=== PATIENT | female | born 1970 | race Caucasian/White ===

== ENCOUNTER 2018-02-24 05:54 | Emergency (ER) | payer OTHER ==
[2018-02-24] MEDS ORDERED: DIPHENHYDRAMINE 50 MG/ML VIAL ONE (06:25)
[2018-02-24] MEDS ORDERED: PROMETHAZINE 25 MG/ML VIAL ONE ×2 (06:25→07:35)
[2018-02-24] MEDS ORDERED: KETOROLAC 30 MG/ML INJ ONE (06:25)
[2018-02-24] MEDS ORDERED: NA CHLORIDE 0.9% 1,000 ML ONE ×3 (06:25→09:04)
[2018-02-24 07:01] LABS: Glucose Level 98 mg/dL (65-120)
[2018-02-24 07:02] LABS: Absolute Lymphocytes (CBC) 1.1 K/uL (0.7-4.9); Absolute Monocytes 0.8 K/uL (0.1-1.3); Absolute Neutrophil 11.3 K/uL (1.8-8.0); Basophils % 0.3 % (0-1.3); Eosinophils % 0.1 % (0-4.4); Hematocrit 39.3 % (36.0-45.0); MCH 24.8 pg (27.0-35.0); MCV 79.1 fL (80-100); MPV 9.9 fL (7.6-11.3); Monocytes % 5.9 % (3.3-12.3); RBC Red Blood Cell Count 4.97 M/uL (3.86-4.86)
[2018-02-24 07:07] LABS: ALT/SGPT 55 IU/L (10-60); AST/SGOT 43 IU/L (10-42); Albumin 3.7 g/dL (3.2-5.5); Alkaline Phosphatase 104 IU/L (42-121); BUN Blood Urea Nitrogen 16 mg/dL (6-20); Bilirubin Direct 0.3 mg/dL (0-0.2); Bilirubin Total 1.4 mg/dL (0.3-1.2); Protein, Total 7.2 g/dL (6.0-8.3)
[2018-02-24 07:08] LABS: Bicarbonate 22 mEq/L (21-31); Sodium Level 136 mEq/L (135-145)
[2018-02-24] MEDS ORDERED: PANTOPRAZOLE 40 MG INJ ONE (07:35)
[2018-02-24] MEDS ORDERED: ALBUTEROL 2.5 MG/3 ML NEB SOL ONE (07:35)
[2018-02-24 08:58] LABS: Blood Morphology Comment NOT SEEN (NOT SEEN); Platelet Estimate ADEQ; Urine White Blood Cell Casts OK
[2018-02-24] MEDS ORDERED: POTASSIUM CL SA 10 MEQ TAB PO ONE (09:03)
[2018-02-24] MEDS ORDERED: KCL 20 MEQ/100 mL IVPB 20 MEQ/100 ML BAG IV ONE (09:04)
[2018-02-24] MEDS ORDERED: ONDANSETRON 4 MG (ODT) TAB ONE (09:04)
--- NOTE | 2018-02-24 09:48 | RAD REPORT ---
EXAM DESCRIPTION: CT - Head Brain Wo Cont - 02/24/2018 9:23 am CLINICAL HISTORY: Migraine headache, photophobia COMPARISON: CT head March 2015 TECHNIQUE: Axial 5 mm thick images of the head were obtained without IV contrast. All CT scans are performed using dose optimization technique as appropriate and may include automated exposure control or mA/KV adjustment according to patient size. FINDINGS: No intracranial hemorrhage, mass, edema or shift of mid-line structures. No acute infarcti on changes seen. No abnormal extra-axial fluid collections. Ventricles are normal. No acute intracran ial finding seen in the intracranial structures are similar to 2015. Mastoid air cells and visualized portions of the paranasal sinuses are clear. No acute bony findings. IMPRESSION: Negative non-contrast CT head examination. No significant change from comparison.
--- NOTE | 2018-02-24 10:40 | ER ---
Nurse's Notes [facility] Name: Sohan Looney Age: 47 yrs Sex: Female : 1970 Arrival Date: 02/24/2018 Time: 05:55 Bed 13 Private MD: Bucky Hunter Diagnosis: Headache;Hypokalemia;Urinary tract infection, site not specified Presentation: 02/24 06:03 Presenting complaint: Patient states: Migraine x2 days, states N/V, sensitive to light; lp1 Has been taking Maxalt at home with no relief. Transition of care: patient was not received from another setting of care. Onset of symptoms was February 22, 2018. Risk Assessment: Do you want to hurt yourself or someone else? Patient reports no desire to harm self or others. Initial Sepsis Screen: Does the patient meet any 2 criteria? No. Patient's initial sepsis screen is negative. Does the patient have a suspected source of infection? No. Patient's initial sepsis screen is negative. 06:03 Method Of Arrival: Wheelchair lp1 06:03 Acuity: MATTEO 3 lp1 06:06 Care prior to arrival: None. lp1 Triage Assessment: 06:40 GI: Reports nausea, vomiting. 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 - Social history:: Smoking status: Patient uses tobacco products, smokes one pack cigarettes per day. - Ebola Screening: : No symptoms or risks identified at this time. Screenin:40 Abuse screen: Denies threats or abuse. Denies injuries from another. Nutritional lp1 screening: No deficits noted. Tuberculosis screening: No symptoms or risk factors identified. Fall Risk None identified. Assessment: 06:15 General: Appears uncomfortable, Behavior is restless. Pain: Complains of pain in head lp1 Pain currently is 10 out of 10 on a pain scale. Quality of pain is described as pressure, Pain began 2-3 days ago. Noted to be grimacing, guarding, restless. Neuro: Level of Consciousness is awake, alert, obeys commands, Oriented to person, place, time, situation. Cardiovascular: Patient's skin is warm and dry. Respiratory: Respiratory effort is even, unlabored, Breath sounds are clear bilaterally. GI: Abdomen is flat, Pt is actively vomiting. : No signs and/or symptoms were reported regarding the genitourinary system. EENT: No signs and/or symptoms were reported regarding the EENT system. Derm: Skin is intact, Skin is dry, Skin is normal. Musculoskeletal: Circulation, motion, and sensation intact. 07:29 General: Appears in no apparent distress. uncomfortable, Behavior is calm, cooperative. em Pain: Complains of pain in head Pain currently is 6 out of 10 on a pain scale. Quality of pain is described as pressure, Pain began 2-3 days ago. Neuro: Level of Consciousness is awake, alert, obeys commands, Oriented to person, place, time, situation. Cardiovascular: Capillary refill < 3 seconds Patient's skin is warm and dry. Respiratory: Airway is patent Respiratory effort is even, unlabored, Respiratory pattern is regular, symmetrical, Breath sounds are clear bilaterally. GI: Abdomen is flat. : No signs and/or symptoms were reported regarding the genitourinary system. EENT: No signs and/or symptoms were reported regarding the EENT system. Derm: Skin is intact, Skin is pink, warm \T\ dry. 07:45 Reassessment: Patient appears in no apparent distress at this time. I agree with above iw assessment by Freddy Vora LVN. 08:39 Reassessment: Patient appears in no apparent distress at this time. Patient and/or em family updated on plan of care and expected duration. Pain level reassessed. Patient is alert, oriented x 3, equal unlabored respirations, skin warm/dry/pink. pt c/o pain, Elly, PROJECTION CAMERA OPERATOR notified. 09:43 Reassessment: Patient appears in no apparent distress at this time. Patient and/or em family updated on plan of care and expected duration. Pain level reassessed. Patient is alert, oriented x 3, equal unlabored respirations, skin warm/dry/pink. resting with towel over eyes, rates pain 6/10. 10:50 Reassessment: Patient appears in no apparent distress at this time. Patient and/or em family updated on plan of care and expected duration. Pain level reassessed. Patient is alert, oriented x 3, equal unlabored respirations, skin warm/dry/pink. Vital Signs: 06:06 BP 133 / 76; Pulse 100; Resp 18; Pulse Ox 98% on R/A; Weight 54.43 kg; Height 5 ft. 3 lp1 in. (160.02 cm); Pain 10/10; 07:30 BP 131 / 76; Pulse 90; Resp 15; Pulse Ox 99% on R/A; Pain 6/10; em 08:39 BP 114 / 73; Pulse 99; Resp 16; Pulse Ox 97% on R/A; em 09:50 BP 125 / 77; Pulse 99; Resp 15; Temp 98.1(O); Pulse Ox 100% on R/A; em 10:50 BP 130 / 78; Pulse 97; Resp 17; Pulse Ox 97% on R/A; Pain 6/10; em 06:06 Body Mass Index 21.26 (54.43 kg, 160.02 cm) lp1 [place]us Coma Score: 10:34 Eye Response: spontaneous(4). Verbal Response: oriented(5). Motor Response: obeys snw commands(6). Total: 15. ED Course: 05:55 Patient arrived in ED. ds1 06:03 Jeanine Monk, RN is Primary Nurse. lp1 06:05 Triage completed. lp1 06:06 Arm band placed on right wrist. lp1 06:16 El[facility] Becerril FNP-C [facility]. snw 06:16 Td Bray MD is Attending Physician. snw 06:20 Inserted saline lock: 20 gauge in right forearm, using aseptic technique. Blood lp1 collected. 06:39 Patient has correct armband on for positive identification. Pulse ox on. NIBP on. lp1 06:44 Bucky Hunter MD is Private Physician. ds1 09:24 CT Head Brain wo Cont In Process Unspecified. EDMS 09:30 No provider procedures requiring assistance completed. Inserted saline lock: 22 gauge em in left antecubital area, using aseptic technique. 10:39 Bucky Hunter MD is Referral Physician. snw 11:04 IV discontinued, intact, bleeding controlled, No redness/swelling at site. Pressure em dressing applied. Administered Medications: 06:36 Drug: NS 0.9% 1000 ml Route: IV; Rate: 1 bolus; Site: right forearm; lp1 07:27 Follow up: IV Status: Completed infusion; IV Intake: 1000ml em 06:36 Drug: Phenergan 12.5 mg Route: IVP; Site: right forearm; lp1 07:27 Follow up: Response: No adverse reaction; Nausea is decreased em 06:36 Drug: TORadol 30 mg Route: IVP; Site: right forearm; lp1 07:27 Follow up: Response: No adverse reaction; Pain is decreased em 06:36 Drug: Benadryl 12.5 mg Route: IVP; Site: right forearm; lp1 07:27 Follow up: Response: No adverse reaction; Pain is decreased em 07:26 Drug: NS 0.9% 1000 ml Route: IV; Rate: 1 bolus; Site: right forearm; em 11:07 Follow up: IV Status: Completed infusion; IV Intake: 1000ml em 07:30 Drug: Albuterol 2.5 mg Route: Inhalation; em 08:40 Follow up: Response: No adverse reaction em 07:30 Drug: Phenergan 12.5 mg Route: IVP; Site: right forearm; em 08:40 Follow up: Response: No adverse reaction em 07:35 Drug: ProTONIX 40 mg Route: IVP; Site: right forearm; iw 08:40 Follow up: Response: No adverse reaction em 09:38 Drug: Potassium Chloride 40 mEq Route: PO; em 09:47 Follow up: Response: No adverse reaction em 09:39 Drug: Zofran 4 mg Route: PO; em 09:48 Follow up: Response: No adverse reaction em 09:39 Drug: Potassium Chloride 20 mEq Route: IV; Rate: calculated rate; Site: left em antecubital; 11:01 Follow up: Response: No adverse reaction; IV Status: Completed infusion; IV Intake: em 100ml 10:55 Drug: Rocephin 1 grams Route: IV; Rate: calculated rate; Site: left antecubital; iw 11:03 Follow up: Response: No adverse reaction; IV Status: Completed infusion em Intake: 07:27 IV: 1000ml; Total: 1000ml. em 11:01 IV: 100ml; Total: 1100ml. em 11:07 IV: 1000ml; Total: 2100ml. em Outcome: 10:39 Discharge ordered by . snw 11:05 Discharged to home via wheelchair, with family. em 11:05 Condition: good 11:05 Discharge instructions given to patient, family, Instructed on discharge instructions, follow up and referral plans. no drinking with medication, medication usage, Demonstrated understanding of instructions, follow-up care, medications, Prescriptions given X 5 11:08 Patient left the ED. em Addendum: 02/28/2018 07:49 Addendum: Culture Results: Positive urine culture. No further action required. Bacteria s s sensitive to prescribed antibiotic. Signatures: Dispatcher [employer] EDElly Dow, HAND COKE DRAWER-C HAND COKE DRAWER-Csnw Freddy Vora, DIRECTOR OF MANAGED SERVICES DIRECTOR OF MANAGED SERVICES Mariela Newberry ds1 Mehnaz Hughes, RN FÉLIX iw Koki Horvath RN RN ss Jeanine Monk RN RN lp1
--- NOTE | 2018-02-24 10:40 | EDPHYS ---
Physician Documentation [facility] Name: Sohan Looney Age: 47 yrs Sex: Female : 1970 Arrival Date: 02/24/2018 Time: 05:55 Bed 13 Private MD: Bucky Hunter ED Physician Td Bray HPI: 02/24 08:36 This 47 yrs old Female presents to ER via Wheelchair with complaints of snw Migraine, Nausea/Vomiting. 08:36 The patient complains of pain to the top of head and forehead. The patient describes snw the headache as constant. Onset: The symptoms/episode began/occurred 2 day(s) ago, and became worse and became persistent. Associated signs and symptoms: Pertinent positives: malaise, nausea, Photophobia vomiting. Severity of symptoms: At its worst the pain was moderate, severe. Headache History: The patient has had previous headaches and this one is similar to previous episodes. The symptoms are alleviated by nothing. the symptoms are aggravated by lights, movement. The patient has experienced similar episodes in the past. It is unknown whether or not the patient has recently seen a physician. 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 - Social history:: Smoking status: Patient uses tobacco products, smokes one pack cigarettes per day. - Ebola Screening: : No symptoms or risks identified at this time. ROS: 08:34 Constitutional: Negative for fever, chills, and weight loss, Eyes: Negative for injury, snw pain, redness, and discharge, ENT: Negative for injury, pain, and discharge, Neck: Negative for injury, pain, and swelling, Cardiovascular: Negative for chest pain, palpitations, and edema, Respiratory: Negative for shortness of breath, cough, wheezing, and pleuritic chest pain. 08:34 Back: Negative for injury and pain, : Negative for injury, bleeding, discharge, and swelling, MS/Extremity: Negative for injury and deformity, Skin: Negative for injury, rash, and discoloration. 08:34 Abdomen/GI: Positive for nausea and vomiting. 08:34 Neuro: Positive for headache. Exam: 08:34 Head/Face: Normocephalic, atraumatic. Eyes: Pupils equal round and reactive to light, snw extra-ocular motions intact. Lids and lashes normal. Conjunctiva and sclera are non-icteric and not injected. Cornea within normal limits. Periorbital areas with no swelling, redness, or edema. ENT: Nares patent. No nasal discharge, no septal abnormalities noted. Tympanic membranes are normal and external auditory canals are clear. Oropharynx with no redness, swelling, or masses, exudates, or evidence of obstruction, uvula midline. Mucous membranes moist. Neck: Trachea midline, no thyromegaly or masses palpated, and no cervical lymphadenopathy. Supple, full range of motion without nuchal rigidity, or vertebral point tenderness. No Meningismus. Chest/axilla: Normal chest wall appearance and motion. Nontender with no deformity. No lesions are appreciated. Cardiovascular: Regular rate and rhythm with a normal S1 and S2. No gallops, murmurs, or rubs. Normal PMI, no JVD. No pulse deficits. Respiratory: Lungs have equal breath sounds bilaterally, clear to auscultation and percussion. No rales, rhonchi or wheezes noted. No increased work of breathing, no retractions or nasal flaring. Abdomen/GI: Soft, non-tender, with normal bowel sounds. No distension or tympany. No guarding or rebound. No evidence of tenderness throughout. Back: No spinal tenderness. No costovertebral tenderness. Full range of motion. Skin: Warm, dry with normal turgor. Normal color with no rashes, no lesions, and no evidence of cellulitis. MS/ Extremity: Pulses equal, no cyanosis. Neurovascular intact. Full, normal range of motion. Neuro: Awake and alert, GCS 15, oriented to person, place, time, and situation. Cranial nerves II-XII grossly intact. Motor strength 5/5 in all extremities. Sensory grossly intact. Cerebellar exam normal. Normal gait. Psych: Awake, alert, with orientation to person, place and time. Behavior, mood, and affect are within normal limits. 08:34 Constitutional: The patient appears awake, listless, uncomfortable. Vital Signs: 06:06 BP 133 / 76; Pulse 100; Resp 18; Pulse Ox 98% on R/A; Weight 54.43 kg; Height 5 ft. 3 lp1 in. (160.02 cm); Pain 10/10; 07:30 BP 131 / 76; Pulse 90; Resp 15; Pulse Ox 99% on R/A; Pain 6/10; em 08:39 BP 114 / 73; Pulse 99; Resp 16; Pulse Ox 97% on R/A; em 09:50 BP 125 / 77; Pulse 99; Resp 15; Temp 98.1(O); Pulse Ox 100% on R/A; em 10:50 BP 130 / 78; Pulse 97; Resp 17; Pulse Ox 97% on R/A; Pain 6/10; em 06:06 Body Mass Index 21.26 (54.43 kg, 160.02 cm) lp1 [place] Coma Score: 10:34 Eye Response: spontaneous(4). Verbal Response: oriented(5). Motor Response: obeys snw commands(6). Total: 15. MDM: 06:18 Patient medically screened. snw 10:34 Data reviewed: vital signs, nurses notes. Data interpreted: Pulse oximetry: on room air snw is 100 %. Interpretation: normal. Counseling: I had a detailed discussion with the patient and/or guardian regarding: the historical points, exam findings, and any diagnostic results supporting the discharge/admit diagnosis, lab results, radiology results, the need for outpatient follow up, to return to the emergency department if symptoms worsen or persist or if there are any questions or concerns that arise at home. Special discussion: Based on the history and exam findings, there is no indication for further emergent testing or inpatient evaluation. I discussed with the patient/guardian the need to see the neurologist for further evaluation of the symptoms. I discussed with the patient/guardian the need to see the primary care provider for further evaluation of the symptoms. 02/24 06:20 Order name: Basic Metabolic Panel; Complete Time: 07:14 snw 02/24 06:20 Order name: CBC with Diff; Complete Time: 08:59 snw 02/24 06:20 Order name: Hepatic Function; Complete Time: 07:14 snw 05/30 06:20 Order name: Urine Microscopic Only; Complete Time: 10:51 snw 02/24 07:13 Order name: CBC Smear Scan; Complete Time: 08:59 EDMS 02/24 10:28 Order name: Urine Dipstick--Ancillary (enter results); Complete Time: 10:45 ag 02/24 10:28 Order name: Urine --Ancillary (enter results); Complete Time: 10:45 ag 02/24 10:51 Order name: Urine Culture EDMS 02/24 06:20 Order name: IV Saline Lock; Complete Time: 06:36 snw 02/24 06:20 Order name: Labs collected and sent; Complete Time: 06:37 snw 02/24 08:49 Order name: CT Head Brain wo Cont; Complete Time: 09:52 snw 02/24 06:20 Order name: Urine Dipstick-Ancillary (obtain specimen); Complete Time: 10:13 snw Administered Medications: 06:36 Drug: NS 0.9% 1000 ml Route: IV; Rate: 1 bolus; Site: right forearm; lp1 07:27 Follow up: IV Status: Completed infusion; IV Intake: 1000ml em 06:36 Drug: Phenergan 12.5 mg Route: IVP; Site: right forearm; lp1 07:27 Follow up: Response: No adverse reaction; Nausea is decreased em 06:36 Drug: TORadol 30 mg Route: IVP; Site: right forearm; lp1 07:27 Follow up: Response: No adverse reaction; Pain is decreased em 06:36 Drug: Benadryl 12.5 mg Route: IVP; Site: right forearm; lp1 07:27 Follow up: Response: No adverse reaction; Pain is decreased em 07:26 Drug: NS 0.9% 1000 ml Route: IV; Rate: 1 bolus; Site: right forearm; em 11:07 Follow up: IV Status: Completed infusion; IV Intake: 1000ml em 07:30 Drug: Albuterol 2.5 mg Route: Inhalation; em 08:40 Follow up: Response: No adverse reaction em 07:30 Drug: Phenergan 12.5 mg Route: IVP; Site: right forearm; em 08:40 Follow up: Response: No adverse reaction em 07:35 Drug: ProTONIX 40 mg Route: IVP; Site: right forearm; iw 08:40 Follow up: Response: No adverse reaction em 09:38 Drug: Potassium Chloride 40 mEq Route: PO; em 09:47 Follow up: Response: No adverse reaction em 09:39 Drug: Zofran 4 mg Route: PO; em 09:48 Follow up: Response: No adverse reaction em 09:39 Drug: Potassium Chloride 20 mEq Route: IV; Rate: calculated rate; Site: left em antecubital; 11:01 Follow up: Response: No adverse reaction; IV Status: Completed infusion; IV Intake: em 100ml 10:55 Drug: Rocephin 1 grams Route: IV; Rate: calculated rate; Site: left antecubital; iw 11:03 Follow up: Response: No adverse reaction; IV Status: Completed infusion em Disposition: 20:33 Co-signature as Attending Physician, Td Bray MD. rn Disposition: 02/24/18 10:39 Discharged to Home. Impression: Headache, Hypokalemia, Urinary tract infection, site not specified. - Condition is Stable. - Discharge Instructions: Back Pain, Adult, Potassium Content of Foods, Migraine Headache, Urinary Tract Infection, Hypokalemia, Rehydration, Adult. - Prescriptions for Fiorinal 50- 325-40 mg Oral Capsule - take 1 capsule by ORAL route every 4 hours As needed - not to exceed 6 capsules per day; 10 capsule. Zyrtec 10 mg Oral Tablet - take 1 tablet by ORAL route once daily As needed; 20 tablet. promethazine 25 mg Oral Tablet - take 1 tablet by ORAL route every 6 hours As needed; 20 tablet. Prednisone 20 mg Oral Tablet - take 1 tablet by ORAL route once daily for 5 days; 5 tablet. cefpodoxime 100 mg Oral Tablet - take 1 tablet by ORAL route every 12 hours for 10 days take with food; 20 tablet. - Medication Reconciliation Form, Thank You Letter, Antibiotic Education, Prescription Opioid Use form. - Follow up: Bucky Hunter; When: 1 - 2 days; Reason: Recheck today's complaints, Continuance of care, Re-evaluation by your physician. Follow up: Emergency Department; When: As needed; Reason: Worsening of condition. - Problem is an acute exacerbation. - Symptoms are unchanged. Signatures: Dispatcher [employer] EDElly Dow, DONALDC BIOLOGICAL LAB TECHNICIAN-Florw Freddy Vora, PAINT LINE PRODUCTION SUPERVISOR PAINT LINE PRODUCTION SUPERVISOR em Mehnaz Hughes, Td Bender RN, MD MD rn Pena, Laura, RN RN lp1 Corrections: (The following items were deleted from the chart) 07:56 07:55 Cardiac monitoring ordered. snw snw 07:56 07:55 EKG - Nurse/Tech ordered. snw snw 07:56 07:55 Oxygen Per Protocol ordered. snw snw 07:56 07:55 O2 Sat Monitoring ordered. snw snw 07:57 07:56 CKMB+C.LAB.BRZ ordered. EDMS EDMS 07:58 07:56 TROPONIN (EMERG DEPT USE ONLY)+C.LAB.BRZ ordered. EDMS EDMS 08:02 07:56 CREATINE PHOSPHOKINASE+C.LAB.BRZ ordered. EDMS EDMS 08:02 07:56 MAGNESIUM+C.LAB.BRZ ordered. EDMS EDMS 08:02 07:56 PROTIME (+INR)+COAG.LAB.BRZ ordered. EDMS EDMS 08:02 07:56 PTT, ACTIVATED+COAG.LAB.BRZ ordered. EDMS EDMS 08:05 07:50 Constitutional: The patient appears anxious, in obvious pain, snw snw 08:05 07:50 Head/Face: Normocephalic, atraumatic. Eyes: Pupils equal round and reactive to snw light, extra-ocular motions intact. Lids and lashes normal. Conjunctiva and sclera are non-icteric and not injected. Cornea within normal limits. Periorbital areas with no swelling, redness, or edema. ENT: Nares patent. No nasal discharge, no septal abnormalities noted. Tympanic membranes are normal and external auditory canals are clear. Oropharynx with no redness, swelling, or masses, exudates, or evidence of obstruction, uvula midline. Mucous membranes moist. Neck: Trachea midline, no thyromegaly or masses palpated, and no cervical lymphadenopathy. Supple, full range of motion without nuchal rigidity, or vertebral point tenderness. No Meningismus. Chest/axilla: Normal chest wall appearance and motion. Nontender with no deformity. No lesions are appreciated. snw 08:05 07:50 Cardiovascular: Rate: tachycardic, Rhythm: regular, Heart sounds: normal, JVD: is snw not appreciated, snw 08:05 07:50 Respiratory: Lungs have equal breath sounds bilaterally, clear to auscultation snw and percussion. No rales, rhonchi or wheezes noted. No increased work of breathing, no retractions or nasal flaring. Splinting respirations 2nd to stabbing pain Abdomen/GI: Soft, non-tender, with normal bowel sounds. No distension or tympany. No guarding or rebound. No evidence of tenderness throughout. Skin: Warm, dry with normal turgor. Normal color with no rashes, no lesions, and no evidence of cellulitis. MS/ Extremity: Pulses equal, no cyanosis. Neurovascular intact. Full, normal range of motion. Neuro: Awake and alert, GCS 15, oriented to person, place, time, and situation. Cranial nerves II-XII grossly intact. Motor strength 5/5 in all extremities. Sensory grossly intact. Cerebellar exam normal. Normal gait. snw 08:05 07:50 Back: pain, that is severe, ROM is painful, with all movement, decreased, normal snw spinal alignment noted, pt holding himself in rigid position, snw 11:08 10:39 02/24/2018 10:39 Discharged to Home. Impression: Headache; Hypokalemia; Urinary em tract infection, site not specified. Condition is Stable. Discharge Instructions: Potassium Content of Foods, Migraine Headache, Hypokalemia, Rehydration, Adult, Back Pain, Adult. Prescriptions for Fiorinal 50-325-40 mg Oral Capsule - take 1 capsule by ORAL route every 4 hours As needed - not to exceed 6 capsules per day; 10 capsule, Zyrtec 10 mg Oral Tablet - take 1 tablet by ORAL route once daily As needed; 20 tablet, promethazine 25 mg Oral Tablet - take 1 tablet by ORAL route every 6 hours As needed; 20 tablet, Prednisone 20 mg Oral Tablet - take 1 tablet by ORAL route once daily for 5 days; 5 tablet. and Forms are Medication Reconciliation Form, Thank You Letter, Antibiotic Education, Prescription Opioid Use. Follow up: Bucky Hunter; When: 1 - 2 days; Reason: Recheck today's complaints, Continuance of care, Re-evaluation by your physician. Follow up: Emergency Department; When: As needed; Reason: Worsening of condition. Problem is an acute exacerbation. Symptoms are unchanged. snw
[2018-02-24] MEDS ORDERED: CEFTRIAXONE/SWI 1gm 1 GM/10 ML SYR ONE (10:43)
[2018-02-24 10:44] LABS: Urine Blood 2+ (NEG); Urine Glucose NEGATIVE (NEG); Urine Protein NEGATIVE (NEG); Urine Specific Gravity 1.015 (1.005-1.030)
[2018-02-24 10:48] LABS: Urine Bacteria LOADED /HPF (<20)
[2018-02-24 10:49] LABS: Urine Culture Reflex Order REFLEXED
[2018-02-24 11:16] VITALS: TEMP 98.1
[2018-02-24 11:17] VITALS: BP 130/78; O2SAT 97
== END 2018-02-24 11:08 | disposition home or self-care (01) ==
LOC: ER 05:54
DX: N39.0 Urinary tract infection, site not specified (principal); E87.6 Hypokalemia; F17.210 Nicotine dependence, cigarettes, uncomplicated; I10 Essential (primary) hypertension; E03.9 Hypothyroidism, unspecified; Z88.5 Allergy status to narcotic agent
CPT/HCPCS: 36415; 70450; 80048; 80076; 81025; 85025; 87077; 87086; 87088; 87186; 99284; C9113; J0696; J2550 ×2; J7030 ×3; 81003; 81015

== ENCOUNTER 2018-08-20 20:14 | Emergency (ER) | payer OTHER ==
--- NOTE | 2018-08-20 20:54 | RAD REPORT ---
EXAM DESCRIPTION: CT - Head C Spine Cap Wo Con - 08/20/2018 8:31 pm CLINICAL HISTORY: Fall, head, neck, chest and abdomen pain COMPARISON: CT head January 2018, CT trauma gram March 2015 TECHNIQUE: Axial [address] head images were obtained. Axial [address] cervical spine images were obtain ed with sagittal and coronal reconstruction images reviewed. Axial 5 mm images of the chest, abdomen and pelvis were obtained. All CT scans are performed using dose optimization technique as appropriate and may include automated exposure control or mA/KV adjustment according to patient size. FINDINGS: No intracranial hemorrhage, mass or edema. No midline shift or abnormal fluid collection. Mild volume loss changes are present. Ventricles are normal. Mastoid air cells and paranasal sinuses are clear. No skull fracture. Cervical bodies are normal in height and alignment. No fracture or acute bone finding.C6-7 disc space narrowing and endplate spurring present. There is left bony foraminal encroachment at this level.No prevertebral soft tissue thickening or paraspinal mass.Central canal detail is inherently limited on CT imaging. CT chest shows no pneumothorax, pulmonary contusion or pleural fluid collection. Minimal apical subcu taneous bulla and bleb formation. No mediastinal hematoma and the aorta and pulmonary arteries are un remarkable. No chest will mass or abnormal axillary finding. No displaced rib fracture or other signi ficant bony finding. Fluid is present in the esophagus probably from reflux. This examination is soni ited in the ability to evaluate the esophagus. CT abdomen and pelvis show no injury to solid abdominal viscera. Cholecystectomy clips are present. P neumobilia is present in the common bile duct. No bowel injury or significant finding. No free air, f ree fluid or abnormal stranding. No hernia, mass or bulky lymphadenopathy. No urinary bladder abnorm ality. Uterus is absent. Ovaries are absent or atrophic. Left femur is absent. Significant left pelvic muscle atrophy present not unexpected given the amputat ion. No air or foreign body in the soft tissues. IMPRESSION: Negative CT head examination for acute finding. C6-7 degenerative disc disease with left foraminal narrowing. No acute cervical spine finding. Centra l canal inherently limited. No acute CT chest finding. Fluid is evident in the esophagus presumed to be from reflux. CT is esopha geal assessment is limited. No acute CT abdomen or pelvis finding. Nonacute findings detailed in the body of the report.
[2018-08-20] MEDS ORDERED: NA CHLORIDE 0.9% 500 ML ONE (21:08)
[2018-08-20] MEDS ORDERED: ONDANSETRON 4 MG/2 ML VIAL ONE (21:08)
[2018-08-20] MEDS ORDERED: FENTANYL CITR 100 MCG/2 ML ONE (21:08)
[2018-08-20 21:25] LABS: Absolute Lymphocytes (CBC) 1.2 K/uL (0.7-4.9); Absolute Monocytes 0.4 K/uL (0.1-1.3); Absolute Neutrophil 4.7 K/uL (1.8-8.0); Basophils % 0.8 % (0-1.3); Eosinophils % 2.4 % (0-4.4); Hematocrit 33.7 % (36.0-45.0); Lymphocytes % 18.8 % (15.3-44.8); MCH 26.1 pg (27.0-35.0); MPV 9.7 fL (7.6-11.3); Monocytes % 5.7 % (3.3-12.3)
[2018-08-20 21:30] LABS: Protime INR 0.97
[2018-08-20 21:39] LABS: Potassium 3.7 mmol/L (3.5-5.1)
[2018-08-20] MEDS ORDERED: TETANUS & DIPHTHERIA TOX,ADULT 0.5 ML VIAL ONE (21:55)
--- NOTE | 2018-08-20 22:23 | ER ---
Nurse's Notes [facility] Name: Sohan Givens Age: 48 yrs Sex: Female : 1970 Arrival Date: 08/20/2018 Time: 20:20 Bed 15 Private MD: Diagnosis: Concussion without loss of consciousness;Laceration without foreign body of scalp Presentation: 08/20 20:23 Presenting complaint: Patient states: "I slipped on a wet spot on the floor and my tl2 crutches went out from underneath me, I hit my bottom first and then hit my head on the tile." Small laceration and hematoma to left side of head. Pt denies LOC, AOx4. C-collar in place. Transition of care: patient was not received from another setting of care. Onset of symptoms was August 20, 2018 at 19:20. Risk Assessment: Do you want to hurt yourself or someone else? Patient reports no desire to harm self or others. Initial Sepsis Screen: Does the patient meet any 2 criteria? No. Patient's initial sepsis screen is negative. Does the patient have a suspected source of infection? No. Patient's initial sepsis screen is negative. Care prior to arrival: Cervical collar in place. 20:23 Method Of Arrival: EMS: [facility] tl2 20:23 Acuity: MATTEO 3 tl2 Triage Assessment: 20:28 General: Appears in no apparent distress. uncomfortable, Behavior is calm, cooperative, tl2 appropriate for age. Pain: Complains of pain in head, lower back. Neuro: Level of Consciousness is awake, alert, obeys commands, Oriented to person, place, time, situation. Cardiovascular: Denies chest pain. Respiratory: Airway is patent Respiratory effort is even, unlabored, Respiratory pattern is regular, symmetrical. GI: No signs and/or symptoms were reported involving the gastrointestinal system. : No signs and/or symptoms were reported regarding the genitourinary system. Derm: Skin is pink, warm \\T\\ dry. Injury Description: Laceration sustained to left yarsani is clean, superficial, 0.5 to 2.5 cm long. Historical: - Allergies: 20:28 Demerol; tl2 - Home Meds: 20:28 levothyroxine oral [Active]; Metoprolol Tartrate Oral [Active]; gabapentin 300 mg oral tl2 cap 1 cap 3 times per day [Active]; Lamictal Oral [Active]; aripiprazole oral oral [Active]; Clonazepam Oral [Active]; Nexium Oral [Active]; - PMHx: 20:28 Hypertension; Hypothyroidism; Left BKA; tl2 - Immunization history:: Adult Immunizations up to date. - Social history:: Smoking status: Patient uses tobacco products, smokes one-half pack cigarettes per day. - Ebola Screening: : No symptoms or risks identified at this time. Screenin:34 Abuse screen: Denies threats or abuse. Nutritional screening: No deficits noted. tl2 Tuberculosis screening: No symptoms or risk factors identified. Fall Risk Fall in past 12 months (25 points). Ambulatory Aid- Crutches/Cane/Walker (15 pts). Gait- Impaired (20 pts.). Assessment: 20:28 General: see triage assessment. tl2 21:30 Reassessment: Patient appears in no apparent distress at this time. Patient and/or tl2 family updated on plan of care and expected duration. Pain level reassessed. Patient is alert, oriented x 3, equal unlabored respirations, skin warm/dry/pink. 23:02 Reassessment: Patient appears in no apparent distress at this time. Patient and/or tl2 family updated on plan of care and expected duration. Pain level reassessed. Patient is alert, oriented x 3, equal unlabored respirations, skin warm/dry/pink. Pt stable, verbalized understanding of discharge instructions, need for follow up and prescription usage. Pt was able to help get in a wheelchair. Vital Signs: 20:28 BP 113 / 73; Pulse 84; Resp 20; Pulse Ox 95% on R/A; Weight 68.04 kg; Height 5 ft. 5 tl2 in. (165.10 cm); Pain 8/10; 21:09 BP 110 / 59; Pulse 84; Resp 18; Pulse Ox 95% on R/A; tl2 22:16 BP 100 / 51; Pulse 77; Resp 18; Pulse Ox 100% on R/A; tl2 22:35 BP 102 / 49; Pulse 77; Resp 18; Pulse Ox 100% on R/A; tl2 23:02 BP 98 / 70; Pulse 68; Resp 18; Pulse Ox 99% on R/A; tl2 20:28 Body Mass Index 24.96 (68.04 kg, 165.10 cm) tl2 ED Course: 20:20 Patient arrived in ED. ms 20:22 Cammie Marcial, FÉLIX is Primary Nurse. tl2 20:23 Danish Cox PA is PHCP. cp 20:23 Td Bray MD is Attending Physician. cp 20:25 Triage completed. tl2 20:28 Arm band placed on right wrist. tl2 20:31 CT Traumagram (Head C Spine CAP wo con) In Process Unspecified. EDMS 20:34 Patient has correct armband on for positive identification. Bed in low position. Call tl2 light in reach. Side rails up X2. 21:30 Inserted saline lock: 22 gauge in right upper arm, using aseptic technique. tl2 23:02 No provider procedures requiring assistance completed. IV discontinued, intact, tl2 bleeding controlled, No redness/swelling at site. Pressure dressing applied. Administered Medications: 21:07 Drug: Zofran 4 mg Route: IVP; Site: right upper arm; tl2 22:00 Follow up: Response: No adverse reaction; Nausea is decreased tl2 21:07 Drug: NS 0.9% 500 ml Route: IV; Rate: bolus; Site: right upper arm; tl2 23:03 Follow up: IV Status: Completed infusion; IV Intake: 500ml tl2 21:08 Drug: fentaNYL (PF) 25 mcg Route: IVP; Site: right upper arm; tl2 21:30 Follow up: Response: No adverse reaction; Pain is decreased tl2 22:34 Drug: Tetanus-Diphtheria Toxoid Adult 0.5 ml {Correctional Medicine Physician: [employer]. Exp: tl2 06/24/2020. Lot #: [id number]. } Route: IM; Site: right deltoid; 23:04 Follow up: Response: No adverse reaction tl2 22:35 Drug: Tylenol #3 (300 mg-30 mg) 2 tabs Route: PO; tl2 23:05 Follow up: Response: No adverse reaction; Medication administered at discharge. tl2 Intake: 23:03 IV: 500ml; Total: 500ml. tl2 Outcome: 22:22 Discharge ordered by . cp 23:02 Discharged to home via wheelchair, with family. tl2 23:02 Condition: stable 23:02 Discharge instructions given to patient, family, Instructed on discharge instructions, follow up and referral plans. medication usage, Demonstrated understanding of instructions, follow-up care, medications, Prescriptions given X 2. 23:05 Patient left the ED. tl2 Signatures: Dispatcher [employer] EDDiamante Gallardo ms, Corey, PA PA cp Knox, Taylor, RN RN tl2
--- NOTE | 2018-08-20 22:23 | EDPHYS ---
Physician Documentation [facility] Name: Sohan Givens Age: 48 yrs Sex: Female : 1970 Arrival Date: 08/20/2018 Time: 20:20 Bed 15 Private MD: ED Physician Td Bray HPI: 08/20 20:30 This 48 yrs old Female presents to ER via EMS with complaints of Fall Injury. cp 20:30 Details of fall: The patient fell from an upright position, while walking with cp crutches, and struck a tile surface. Onset: The symptoms/episode began/occurred just prior to arrival. Associated injuries: The patient sustained injury to the head, laceration, of the right side of the back of head, neck injury, pain, upper back injury, pain, injury to the low back, pain. Severity of symptoms: in the emergency department the symptoms are unchanged, despite home interventions. Patient denies LOC. Reports losing balance while ambulating with crutches. Patient is right leg amputee. Historical: - Allergies: 20:28 Demerol; tl2 - Home Meds: 20:28 levothyroxine oral [Active]; Metoprolol Tartrate Oral [Active]; gabapentin 300 mg oral tl2 cap 1 cap 3 times per day [Active]; Lamictal Oral [Active]; aripiprazole oral oral [Active]; Clonazepam Oral [Active]; Nexium Oral [Active]; - PMHx: 20:28 Hypertension; Hypothyroidism; Left BKA; tl2 - Immunization history:: Adult Immunizations up to date. - Social history:: Smoking status: Patient uses tobacco products, smokes one-half pack cigarettes per day. - Ebola Screening: : No symptoms or risks identified at this time. ROS: 20:30 Constitutional: Negative for body aches, chills, fever, poor PO intake. cp 20:30 Eyes: Negative for injury, pain, redness, and discharge. cp 20:30 ENT: Negative for drainage from ear(s), ear pain, sore throat, difficulty swallowing, difficulty handling secretions. 20:30 Cardiovascular: Negative for chest pain, palpitations. 20:30 Respiratory: Negative for cough, shortness of breath, wheezing. 20:30 Abdomen/GI: Positive for nausea, Negative for abdominal pain, vomiting, diarrhea, constipation. 20:30 Back: Positive for pain at rest. 20:30 : Negative for urinary symptoms. 20:30 MS/extremity: Negative for deformity. 20:30 Skin: Positive for laceration(s), of the scalp. 20:30 Neuro: Positive for headache, Negative for altered mental status, loss of consciousness, weakness. 20:30 All other systems are negative. Exam: 20:35 Constitutional: The patient appears in no acute distress, alert, awake, cp non-diaphoretic, non-toxic, well developed, well nourished. 20:35 Head/face: Noted is hematoma, that is moderate, of the right side of the back of head, cp a laceration(s), that is deep, of the right side of the back of head. 20:35 Eyes: Periorbital structures: appear normal, Pupils: equal, round, and reactive to light and accomodation, Extraocular movements: intact throughout, Conjunctiva: normal, no exudate, no injection, Sclera: no appreciated abnormality, Lids and lashes: appear normal, bilaterally. 20:35 ENT: External ear(s): are unremarkable, Ear canal(s): are normal, clear, TM's: bulging, is not appreciated, bilaterally, dullness, bilaterally, erythema, is not appreciated, bilaterally, Nose: is normal, Mouth: Lips: moist, Oral mucosa: moist, Posterior pharynx: is normal, airway is patent, no erythema, no exudate. 20:35 Neck: C-spine: C-collar placed DISTILLERY LABORER, Back board DISTILLERY LABORER vertebral tenderness, that is mild, crepitus, is not appreciated. 20:35 Chest/axilla: Inspection: normal, Palpation: is normal, no crepitus, no tenderness. 20:35 Cardiovascular: Rate: normal, Rhythm: regular, Pulses: Pulses are 2+ in right radial artery and left radial artery. Edema: is not appreciated. 20:35 Respiratory: the patient does not display signs of respiratory distress, Respirations: normal, no use of accessory muscles, no retractions, no splinting, no tachypnea, labored breathing, is not present, Breath sounds: are clear throughout, no decreased breath sounds, no stridor, no wheezing. 20:35 Abdomen/GI: Inspection: abdomen appears normal, Bowel sounds: active, all quadrants, Palpation: abdomen is soft and non-tender, in all quadrants, rebound tenderness, is not appreciated, voluntary guarding, is not appreciated, involuntary guarding, is not appreciated. 20:35 Back: pain, that is moderate, of the thoracic area and lumbar area, Straight leg raises: of both lower extremities does not illicit pain. 20:35 Musculoskeletal/extremity: Extremities: grossly normal except: noted in the left leg: amputated. 20:35 Neuro: Orientation: to person, place \T\ time. Mentation: lucid, able to follow commands, Cerebellar function: is grossly normal, Motor: no acute changes, Sensation: no acute changes. Vital Signs: 20:28 BP 113 / 73; Pulse 84; Resp 20; Pulse Ox 95% on R/A; Weight 68.04 kg; Height 5 ft. 5 tl2 in. (165.10 cm); Pain 8/10; 21:09 BP 110 / 59; Pulse 84; Resp 18; Pulse Ox 95% on R/A; tl2 22:16 BP 100 / 51; Pulse 77; Resp 18; Pulse Ox 100% on R/A; tl2 22:35 BP 102 / 49; Pulse 77; Resp 18; Pulse Ox 100% on R/A; tl2 23:02 BP 98 / 70; Pulse 68; Resp 18; Pulse Ox 99% on R/A; tl2 20:28 Body Mass Index 24.96 (68.04 kg, 165.10 cm) tl2 Laceration: 22:19 Wound Repair of 4cm ( 1.6in ) subcutaneous laceration to scalp. Linear shaped.. Distal cp neuro/vascular/tendon intact. Anesthesia: Local anesthetic administered with 0 mls of none. Wound prep: Moderate cleansing by nurse. Skin closed with 4 1-0 [place] using staple gun. Dressed with 4x4's, Kerlix. Patient tolerated well. MDM: 20:25 Patient medically screened. cp 21:00 Differential diagnosis: closed head injury, contusion, fracture, laceration, multiple cp trauma. 22:20 Data reviewed: vital signs, nurses notes, lab test result(s), radiologic studies, CT cp scan. 22:20 Counseling: I had a detailed discussion with the patient and/or guardian regarding: the cp historical points, exam findings, and any diagnostic results supporting the discharge/admit diagnosis, the need for outpatient follow up, a family practitioner, to return to the emergency department if symptoms worsen or persist or if there are any questions or concerns that arise at home. Response to treatment: the patient's symptoms have markedly improved after treatment, VSS. Pain improved with meds. Scalp laceration closed as noted and patient instructed on wound care. Will discharge to home for continued monitoring. 08/20 20:24 Order name: Basic Metabolic Panel; Complete Time: 21:44 cp 08/20 21:44 Interpretation: Normal except: CL 110; GFR 77. 08/20 20:24 Order name: CBC with Diff; Complete Time: 21:44 cp 08/20 21:44 Interpretation: Normal except: HGB 10.7; HCT 33.7; MCH 26.1; MCHC 31.9; RDW 16.4. 08/20 20:24 Order name: CT Traumagram (Head C Spine CAP wo con); Complete Time: 20:59 08/20 21:01 Interpretation: Report reviewed. 08/20 20:24 Order name: Creatinine for Radiology; Complete Time: 21:44 cp 08/20 20:24 Order name: PT-INR; Complete Time: 21:44 cp 08/20 20:24 Order name: Ptt, Activated; Complete Time: 21:44 cp 08/20 20:24 Order name: Labs collected and sent; Complete Time: 21:08 08/20 21:34 Order name: Wound Care: please clean head wounds; Complete Time: 21:49 cp Administered Medications: 21:07 Drug: Zofran 4 mg Route: IVP; Site: right upper arm; tl2 22:00 Follow up: Response: No adverse reaction; Nausea is decreased tl2 21:07 Drug: NS 0.9% 500 ml Route: IV; Rate: bolus; Site: right upper arm; tl2 23:03 Follow up: IV Status: Completed infusion; IV Intake: 500ml tl2 21:08 Drug: fentaNYL (PF) 25 mcg Route: IVP; Site: right upper arm; tl2 21:30 Follow up: Response: No adverse reaction; Pain is decreased tl2 22:34 Drug: Tetanus-Diphtheria Toxoid Adult 0.5 ml {Skatesman: [employer]. Exp: tl2 06/24/2020. Lot #: [id number]. } Route: IM; Site: right deltoid; 23:04 Follow up: Response: No adverse reaction tl2 22:35 Drug: Tylenol #3 (300 mg-30 mg) 2 tabs Route: PO; tl2 23:05 Follow up: Response: No adverse reaction; Medication administered at discharge. tl2 Disposition: 23:15 Chart complete. cp 23:38 Co-signature as Attending Physician, Td Bray MD. rn Disposition: 08/20/18 22:22 Discharged to Home. Impression: Concussion without loss of consciousness, Laceration without foreign body of scalp. - Condition is Stable. - Discharge Instructions: Concussion, Adult, Head Injury, Adult, Laceration Care, Adult. - Prescriptions for Tylenol- Codeine #3 300-30 mg Oral Tablet - take 2 tablets by ORAL route every 6 hours As needed; 12 tablet. Zofran 4 mg Oral Tablet - take 1 tablet by ORAL route every 12 hours As needed; 20 tablet. - Medication Reconciliation Form, Thank You Letter, Antibiotic Education, Prescription Opioid Use form. - Follow up: Private Physician; When: 2 - 3 days; Reason: Wound Recheck. - Problem is new. - Symptoms have improved. Signatures: Dispatcher [employer] EDWI Td Bray MD MD rn Danish Cox PA PA cp Knox, Taylor, RN RN tl2 Corrections: (The following items were deleted from the chart) 23:05 22:22 08/20/2018 22:22 Discharged to Home. Impression: Concussion without loss of tl2 consciousness; Laceration without foreign body of scalp. Condition is Stable. Forms are Medication Reconciliation Form, Thank You Letter, Antibiotic Education, Prescription Opioid Use. Follow up: Private Physician; When: 2 - 3 days; Reason: Wound Recheck. Problem is new. Symptoms have improved. cp
[2018-08-20] MEDS ORDERED: CODEINE 30MG/APAP 300MG TAB ONE (22:35)
[2018-08-20 23:24] VITALS: BP 98/70; O2SAT 99
== END 2018-08-20 23:05 | disposition home or self-care (01) ==
LOC: ER 20:14
PROC: 0JQ00ZZ Repair Scalp Subcutaneous Tissue and Fascia, Open Approach (ICD-10-PCS; principal; 2018-08-20)
DX: S01.01XA Laceration without foreign body of scalp, initial encounter (principal); W19.XXXA Unspecified fall, initial encounter; Y93.01 Activity, walking, marching and hiking; Y92.9 Unspecified place or not applicable; Z23 Encounter for immunization; I10 Essential (primary) hypertension; E03.9 Hypothyroidism, unspecified; F17.210 Nicotine dependence, cigarettes, uncomplicated
CPT/HCPCS: 12002; 36415; 70450; 71250; 72125; 80048; 85025; 85610; 85730; 90714; 96361; 96374; 96375; 99284; J2405; J3010

== ENCOUNTER 2018-11-16 09:55 | Emergency (ER) | payer OTHER ==
--- OUTSIDE RECORDS SUMMARY | 2018-11-16 10:13 | XMS REPORT ---
:1970 [facility] Address [address] [place] [address] Dr. Glez[address] [place] [id number] Care Team Providers Name Role Phone Unavailable Unavailable Unavailable Problems This patient has no known problems. Allergies, Adverse Reactions, Alerts This patient has no known allergies or adverse reactions. Medications This patient has no known medications.
[2018-11-16] MEDS ORDERED: MORPHINE 4 MG/ML SYR ONE (10:36)
[2018-11-16] MEDS ORDERED: ONDANSETRON 4 MG/2 ML VIAL ONE (10:36)
[2018-11-16] MEDS ORDERED: NA CHLORIDE 0.9% 500 ML ONE (10:37)
[2018-11-16 10:58] LABS: Absolute Lymphocytes (CBC) 0.7 K/uL (0.7-4.9); Absolute Monocytes 0.5 K/uL (0.1-1.3); Absolute Neutrophil 6.2 K/uL (1.8-8.0); Basophils % 0.5 % (0-1.3); Eosinophils % 1.4 % (0-4.4); Hematocrit 37.7 % (36.0-45.0); Lymphocytes % 9.7 % (15.3-44.8); MPV 9.7 fL (7.6-11.3); Monocytes % 6.3 % (3.3-12.3); RBC Red Blood Cell Count 4.87 M/uL (3.86-4.86)
[2018-11-16 11:13] LABS: ALT/SGPT 41 U/L (12-78); AST/SGOT 29 U/L (15-37); Albumin 3.5 g/dL (3.4-5.0); Alkaline Phosphatase 128 U/L (45-117); BUN Blood Urea Nitrogen 22 mg/dL (7-18); Bicarbonate 25 mmol/L (21-32); Bilirubin Total 0.3 mg/dL (0.2-1.0); Glucose Level 92 mg/dL (74-106); Protein, Total 6.6 g/dL (6.4-8.2); Sodium Level 140 mmol/L (136-145)
[2018-11-16] MEDS ORDERED: FENTANYL CITR 100 MCG/2 ML ONE ×2 (11:27→12:18)
[2018-11-16] MEDS ORDERED: POTASSIUM 25 MEQ EFFERV TAB ONE (12:31)
--- NOTE | 2018-11-16 12:40 | RAD REPORT ---
EXAM DESCRIPTION: RAD - Pelvis - 11/16/2018 12:31 pm CLINICAL HISTORY: Pelvic pain status post injury FINDINGS: Left femur has been resected Old fractures of the left ischium and pubic bone. No acute fracture or dislocation is seen
--- NOTE | 2018-11-16 13:03 | EDPHYS ---
Physician Documentation [facility] Name: Sohan Givens Age: 48 yrs Sex: Female : 1970 Arrival Date: 11/16/2018 Time: 09:56 Bed 6 Private MD: ED Physician Danish Dozier HPI: 11/16 10:32 This 48 yrs old Female presents to ER via EMS with complaints of Fall Injury. sanjeev 10:32 Details of fall: The patient fell from an upright position, while walking. Onset: The sanjeev symptoms/episode began/occurred just prior to arrival. Associated injuries: The patient sustained left femoral area and left hip, decreased range of motion. Severity of symptoms: At their worst the symptoms were mild, in the emergency department the symptoms are unchanged. The patient has not experienced similar symptoms in the past. Historical: - Allergies: 10:03 Demerol; sv - PMHx: 10:03 Hypertension; Hypothyroidism; Anxiety; Osteoporosis; Osteoarthritis; Vitamin B, Ca, K, sv D deficiency; Bone cancer; - PSHx: 10:03 L AKA; left hip; sv - Immunization history:: Adult Immunizations up to date. - Social history:: Smoking status: . - Immunization history: Last tetanus immunization: unknown. - Ebola Screening: : No symptoms or risks identified at this time. - Family history:: not pertinent. ROS: 10:32 Constitutional: Negative for fever, chills, and weight loss, Eyes: Negative for injury, sanjeev pain, redness, and discharge, ENT: Negative for injury, pain, and discharge, Neck: Negative for injury, pain, and swelling, Cardiovascular: Negative for chest pain, palpitations, and edema, Respiratory: Negative for shortness of breath, cough, wheezing, and pleuritic chest pain, Abdomen/GI: Negative for abdominal pain, nausea, vomiting, diarrhea, and constipation, Back: Negative for injury and pain, : Negative for injury, bleeding, discharge, and swelling, Skin: Negative for injury, rash, and discoloration, Neuro: Negative for headache, weakness, numbness, tingling, and seizure, Psych: Negative for depression, anxiety, suicide ideation, homicidal ideation, and hallucinations, Allergy/Immunology: Negative for hives, rash, and allergies, Endocrine: Negative for neck swelling, polydipsia, polyuria, polyphagia, and marked weight changes, Hematologic/Lymphatic: Negative for swollen nodes, abnormal bleeding, and unusual bruising. 10:32 MS/extremity: Positive for decreased range of motion, pain, tenderness, of the left femoral area and left hip. Exam: 10:32 Constitutional: This is a well developed, well nourished patient who is awake, alert, sanjeev and in no acute distress. Head/Face: Normocephalic, atraumatic. Eyes: Pupils equal round and reactive to light, extra-ocular motions intact. Lids and lashes normal. Conjunctiva and sclera are non-icteric and not injected. Cornea within normal limits. Periorbital areas with no swelling, redness, or edema. ENT: Nares patent. No nasal discharge, no septal abnormalities noted. Tympanic membranes are normal and external auditory canals are clear. Oropharynx with no redness, swelling, or masses, exudates, or evidence of obstruction, uvula midline. Mucous membranes moist. Neck: Trachea midline, no thyromegaly or masses palpated, and no cervical lymphadenopathy. Supple, full range of motion without nuchal rigidity, or vertebral point tenderness. No Meningismus. Chest/axilla: Normal chest wall appearance and motion. Nontender with no deformity. No lesions are appreciated. Cardiovascular: Regular rate and rhythm with a normal S1 and S2. No gallops, murmurs, or rubs. Normal PMI, no JVD. No pulse deficits. Respiratory: Lungs have equal breath sounds bilaterally, clear to auscultation and percussion. No rales, rhonchi or wheezes noted. No increased work of breathing, no retractions or nasal flaring. Abdomen/GI: Soft, non-tender, with normal bowel sounds. No distension or tympany. No guarding or rebound. No evidence of tenderness throughout. Back: No spinal tenderness. No costovertebral tenderness. Full range of motion. Skin: Warm, dry with normal turgor. Normal color with no rashes, no lesions, and no evidence of cellulitis. Neuro: Awake and alert, GCS 15, oriented to person, place, time, and situation. Cranial nerves II-XII grossly intact. Motor strength 5/5 in all extremities. Sensory grossly intact. Cerebellar exam normal. Normal gait. Psych: Awake, alert, with orientation to person, place and time. Behavior, mood, and affect are within normal limits. 10:32 Musculoskeletal/extremity: Extremities: grossly normal except: noted in the left femoral area and left hip: deformity, pain. Vital Signs: 10:04 BP 94 / 54; Pulse 103; Resp 20; Temp 98; Pulse Ox 100% ; Weight 45.36 kg; Height 5 ft. sv 2 in. (157.48 cm); Pain 10/10; 10:15 BP 105 / 68; Pulse 91; Resp 18; Pulse Ox 96% ; sv 10:43 BP 103 / 63; Pulse 88; Resp 16; Temp 98; Pulse Ox 96% ; sv 11:00 BP 91 / 53; Pulse 81; Resp 16; Pulse Ox 97% ; sv 12:00 BP 97 / 61; Pulse 81; Resp 16; Pulse Ox 100% ; sv 13:01 BP 94 / 59; Pulse 85; Resp 16; Pulse Ox 95% ; sv 10:04 Body Mass Index 18.29 (45.36 kg, 157.48 cm) sv [place] Coma Score: 09:50 Eye Response: spontaneous(4). Verbal Response: oriented(5). Motor Response: obeys sv commands(6). Total: 15. 10:43 Eye Response: spontaneous(4). Verbal Response: oriented(5). Motor Response: obeys sv commands(6). Total: 15. 13:15 Eye Response: spontaneous(4). Verbal Response: oriented(5). Motor Response: obeys sv commands(6). Total: 15. Trauma Score (Adult): 09:50 Eye Response: spontaneous(1); Verbal Response: oriented(1); Motor Response: obeys sv commands(2); Systolic BP: > 89 mm Hg(4); Respiratory Rate: 10 to 29 per min(4); [place] Score: 15; Trauma Score: 12 10:43 Eye Response: spontaneous(1); Verbal Response: oriented(1); Motor Response: obeys sv commands(2); Systolic BP: > 89 mm Hg(4); Respiratory Rate: 10 to 29 per min(4); [place] Score: 15; Trauma Score: 12 13:15 Eye Response: spontaneous(1); Verbal Response: oriented(1); Motor Response: obeys sv commands(2); Systolic BP: > 89 mm Hg(4); Respiratory Rate: 10 to 29 per min(4); [place] Score: 15; Trauma Score: 12 MDM: 10:07 Patient medically screened. [facility] 10:34 Data reviewed: vital signs, nurses notes, lab test result(s), radiologic studies, plain sanjeev films. 11/16 10:29 Order name: CBC with Diff; Complete Time: 12:11 [facility] 11/16 10:29 Order name: Comprehensive Metabolic Panel; Complete Time: 12:11 [facility] 11/16 10:29 Order name: Pelvis XRAY; Complete Time: 13:00 [facility] [place] Administered Medications: 10:33 Drug: NS 0.9% 500 ml Route: IV; Rate: bolus; Site: right forearm; sv 11:30 Follow up: Response: No adverse reaction; IV Status: Completed infusion; IV Intake: sv 500ml 10:33 Drug: Zofran 4 mg Route: IVP; Site: right forearm; sv 11:00 Follow up: Response: No adverse reaction sv 10:35 Drug: morphine 4 mg Route: IVP; Site: right forearm; sv 11:00 Follow up: Response: No adverse reaction; No change in condition sv 10:39 CANCELLED (Duplicate Order): fentaNYL (PF) 25 mcg IVP once sanjeev 10:39 CANCELLED (Duplicate Order): fentaNYL (PF) 25 mcg IVP once sanjeev 10:40 CANCELLED (Duplicate Order): morphine 4 mg IVP once sanjeev 10:40 CANCELLED (Duplicate Order): morphine 4 mg IVP once sv 10:42 CANCELLED (Duplicate Order): morphine 4 mg IVP once sv 11:18 Drug: fentaNYL (PF) 25 mcg Route: IVP; Site: right forearm; sv 12:08 Follow up: Response: No adverse reaction; No change in condition sv 12:11 Drug: fentaNYL (PF) 25 mcg Route: IVP; Site: right forearm; sv 12:28 Drug: Potassium Effervescent Tablet 50 mEq Route: PO; sg Disposition: 11/16/18 13:00 Discharged to Home. Impression: Fall due to bumping against object, Pain in left hip - contusion, Hypokalemia. - Condition is Stable. - Discharge Instructions: Joint Pain, Potassium Content of Foods, Musculoskeletal Pain, Hip Pain, Hypokalemia. - Prescriptions for Tylenol- Codeine #3 300-30 mg Oral Tablet - take 2 tablets by ORAL route every 6 hours As needed; 26 tablet. Motrin IB 200 mg Oral Tablet - take 1 tablet by ORAL route every 6 hours As needed as needed with food; 40 tablet. - Medication Reconciliation Form, Thank You Letter, Antibiotic Education, Prescription Opioid Use form. - Follow up: Private Physician; When: 2 - 3 days; Reason: Recheck today's complaints, Continuance of care, Re-evaluation by your physician. - Problem is new. - Symptoms have improved. Signatures: Dispatcher [employer] [facility] Sharon Okeefe RN RN Celio Soriano RN RN sg Anderson, Corey, MD MD cha Corrections: (The following items were deleted from the chart) 10:39 10:29 fentaNYL (PF) 25 mcg IVP once ordered. sanjeev sanjeev 10:39 10:29 fentaNYL (PF) 25 mcg IVP once ordered. sanjeev sanjeev 10:40 10:39 morphine 4 mg IVP once ordered. sv sanjeev 10:40 10:39 morphine 4 mg IVP once ordered. sanjeev sv 10:42 10:41 morphine 4 mg IVP once ordered. sv 12:44 10:30 Hip Left 2 View+RAD.RAD.BRZ ordered. [facility] EDSD 13:25 13:00 11/16/2018 13:00 Discharged to Home. Impression: Fall due to bumping against sv object; Pain in left hip - contusion; Hypokalemia. Condition is Stable. Discharge Instructions: Joint Pain, Musculoskeletal Pain, Hip Pain, Potassium Content of Foods, Hypokalemia. Prescriptions for Tylenol-Codeine #3 300-30 mg Oral Tablet - take 2 tablets by ORAL route every 6 hours As needed; 26 tablet, Motrin IB 200 mg Oral Tablet - take 1 tablet by ORAL route every 6 hours As needed as needed with food; 40 tablet. and Forms are Medication Reconciliation Form, Thank You Letter, Antibiotic Education, Prescription Opioid Use. Follow up: Private Physician; When: 2 - 3 days; Reason: Recheck today's complaints, Continuance of care, Re-evaluation by your physician. Problem is new. Symptoms have improved. sanjeev
--- NOTE | 2018-11-16 13:03 | ER ---
Nurse's Notes [facility] Name: Sohan Givens Age: 48 yrs Sex: Female : 1970 Arrival Date: 11/16/2018 Time: 09:56 Bed 6 Private MD: Diagnosis: Fall due to bumping against object;Pain in left hip-contusion;Hypokalemia Presentation: 11/16 09:50 Presenting complaint: EMS states: she tripped over her dog and fell onto the wall sv against her left hip and went down to the floor. BP 116/54 HR-90 98% RA. Pt has old bruising to the right side of her face and arms, reports she falls at home a lot because she uses her crutch at home. Fentanyl 50 mcg IM given to left deltoid. Care prior to arrival: None. Mechanism of Injury: Fall from standing position. Trauma event details: Injury occurred in the [facility], Injury occurred: at home. Injury occurred: November 16, 2018. 09:50 Acuity: MATTEO 3 sv 09:50 Method Of Arrival: EMS: [facility] sv 10:04 Transition of care: patient was not received from another setting of care. Onset of sv symptoms was November 16, 2018. Risk Assessment: Do you want to hurt yourself or someone else? Patient reports no desire to harm self or others. Initial Sepsis Screen: Does the patient meet any 2 criteria? No. Patient's initial sepsis screen is negative. Does the patient have a suspected source of infection? No. Patient's initial sepsis screen is negative. Trauma Activation: Not Applicable Physician: ED Physician; Name: ; Notified At: ; Arrived At: Physician: General Surgeon; Name: ; Notified At: ; Arrived At: Physician: Radiology; Name: ; Notified At: ; Arrived At: Physician: Respiratory; Name: ; Notified At: ; Arrived At: Physician: Lab; Name: ; Notified At: ; Arrived At: Historical: - Allergies: 10:03 Demerol; sv - PMHx: 10:03 Hypertension; Hypothyroidism; Anxiety; Osteoporosis; Osteoarthritis; Vitamin B, Ca, K, sv D deficiency; Bone cancer; - PSHx: 10:03 L AKA; left hip; sv - Immunization history:: Adult Immunizations up to date. - Social history:: Smoking status: . - Immunization history: Last tetanus immunization: unknown. - Ebola Screening: : No symptoms or risks identified at this time. - Family history:: not pertinent. Screenin:09 Abuse screen: Denies threats or abuse. Denies injuries from another. Tuberculosis sv screening: No symptoms or risk factors identified. 10:09 Fall Risk Fall in past 12 months (25 points). Secondary diagnosis (15 points) impaired sv mobility, No IV (0 pts). Ambulatory Aid- None/Bed Rest/Nurse Assist (0 pts). Gait- Normal/Bed Rest/Wheelchair (0 pts) Mental Status- Oriented to own ability (0 pts). Total Hartmann Fall Scale indicates Low Risk Score (25-44 pts). Fall prevention measures have been instituted. Side Rails Up X 2 Placed close to Nursing Station Frequent Obs/Assesments occuring As available Patient and Family Educated on Fall Prevention Program and strategies. 11:15 Nutritional screening: No deficits noted. sv Primary Survey: 09:50 NO uncontrolled hemorrhage observed. A: The patient is alert. Airway: patent, No sv supplemental oxygen in use on arrival. Oral cavity: clear, Trachea midline. Breathing/Chest: Respiratory pattern: regular, Respiratory effort: spontaneous, unlabored, Chest inspection: symmetrical rise and fall of the chest. Circulation: Pulses: palpable right radial artery, right dorsalis pedis artery and left radial artery. Skin color: pink, Skin temperature: warm, dry. Disability Alert. Exposure/Environment: All clothing and personal items were removed. Forensic evidence collection is not deemed to be indicated at this time. Items placed in patient belonging bag. There is no evidence of uncontrolled external bleeding. No obvious injuries are noted at this time. A warming method has been applied: A warm blanket has been provided to the patient. 10:42 Reassessment Airway Airway Patent Oxygen No O2 Oral cavity Clear Trachea Midline sv Breathing/Chest Respiratory pattern Regular Respiratory effort Spontaneous Unlabored Chest inspection Symmetrical Circulation Pulses Palpable Color [place] Pale Temperature Warm Dry Disability Alert. Secondary Survey: 09:50 HEENT: No deficits noted. Gastrointestinal: No deficits noted. : No deficits noted. sv No signs and/or symptoms were reported regarding the genitourinary system. Musculoskeletal: Amputation of left leg. Range of motion: limited in left hip. Assessment: 11:15 Reassessment: Patient appears in no apparent distress at this time. Patient and/or sv family updated on plan of care and expected duration. Pain level reassessed. Patient is alert, oriented x 3, equal unlabored respirations, skin warm/dry/pink. Pain: Complains of pain in left hip Pain currently is 10 out of 10 on a pain scale. Quality of pain is described as burning, tender, throbbing. 12:11 Reassessment: Patient appears in no apparent distress at this time. Patient and/or sv family updated on plan of care and expected duration. Pain level reassessed. Patient is alert, oriented x 3, equal unlabored respirations, skin warm/dry/pink. Pain: Complains of pain in left hip Pain currently is 10 out of 10 on a pain scale. 13:15 Reassessment: Patient appears in no apparent distress at this time. Patient and/or sv family updated on plan of care and expected duration. Pain level reassessed. Patient is alert, oriented x 3, equal unlabored respirations, skin warm/dry/pink. Vital Signs: 10:04 BP 94 / 54; Pulse 103; Resp 20; Temp 98; Pulse Ox 100% ; Weight 45.36 kg; Height 5 ft. sv 2 in. (157.48 cm); Pain 10/10; 10:15 BP 105 / 68; Pulse 91; Resp 18; Pulse Ox 96% ; sv 10:43 BP 103 / 63; Pulse 88; Resp 16; Temp 98; Pulse Ox 96% ; sv 11:00 BP 91 / 53; Pulse 81; Resp 16; Pulse Ox 97% ; sv 12:00 BP 97 / 61; Pulse 81; Resp 16; Pulse Ox 100% ; sv 13:01 BP 94 / 59; Pulse 85; Resp 16; Pulse Ox 95% ; sv 10:04 Body Mass Index 18.29 (45.36 kg, 157.48 cm) sv [place] Coma Score: 09:50 Eye Response: spontaneous(4). Verbal Response: oriented(5). Motor Response: obeys sv commands(6). Total: 15. 10:43 Eye Response: spontaneous(4). Verbal Response: oriented(5). Motor Response: obeys sv commands(6). Total: 15. 13:15 Eye Response: spontaneous(4). Verbal Response: oriented(5). Motor Response: obeys sv commands(6). Total: 15. Trauma Score (Adult): 09:50 Eye Response: spontaneous(1); Verbal Response: oriented(1); Motor Response: obeys sv commands(2); Systolic BP: > 89 mm Hg(4); Respiratory Rate: 10 to 29 per min(4); [place] Score: 15; Trauma Score: 12 10:43 Eye Response: spontaneous(1); Verbal Response: oriented(1); Motor Response: obeys sv commands(2); Systolic BP: > 89 mm Hg(4); Respiratory Rate: 10 to 29 per min(4); Lotus Score: 15; Trauma Score: 12 13:15 Eye Response: spontaneous(1); Verbal Response: oriented(1); Motor Response: obeys sv commands(2); Systolic BP: > 89 mm Hg(4); Respiratory Rate: 10 to 29 per min(4); Lotus Score: 15; Trauma Score: 12 ED Course: 09:56 Patient arrived in ED. sg 09:58 Sharon Okeefe, FÉLIX is Primary Nurse. sv 10:01 Triage completed. sv 10:04 Arm band placed on. sv 10:07 Danish Dozier MD is Attending Physician. sanjeev 10:08 Patient maintains SpO2 saturation greater than 95% on room air. sv 10:09 Awaiting ED provider evaluation. sv 10:09 Patient has correct armband on for positive identification. Placed in gown. Bed in low sv position. Call light in reach. Side rails up X2. Pulse ox on. NIBP on. Door closed. Warm blanket given. Head of bed elevated. 10:09 Thermoregulation: warm blanket given to patient. sv 10:15 Initial lab(s) drawn, by me, sent to lab. Inserted saline lock: 22 gauge in left sv forearm, using aseptic technique. ,using aseptic technique. diffusics Blood collected. Flushed left forearm with 5 ml normal saline. 10:43 Awaiting lab results, Awaiting for x-ray. sv 11:19 Awaiting for x-ray. sv 12:04 Awaiting for x-ray. sv 12:31 Pelvis XRAY In Process Unspecified. EDMS 13:16 No provider procedures requiring assistance completed. IV discontinued, intact, sv bleeding controlled, No redness/swelling at site. Pressure dressing applied. Administered Medications: 10:33 Drug: NS 0.9% 500 ml Route: IV; Rate: bolus; Site: right forearm; sv 11:30 Follow up: Response: No adverse reaction; IV Status: Completed infusion; IV Intake: sv 500ml 10:33 Drug: Zofran 4 mg Route: IVP; Site: right forearm; sv 11:00 Follow up: Response: No adverse reaction sv 10:35 Drug: morphine 4 mg Route: IVP; Site: right forearm; sv 11:00 Follow up: Response: No adverse reaction; No change in condition sv 10:39 CANCELLED (Duplicate Order): fentaNYL (PF) 25 mcg IVP once sanjeev 10:39 CANCELLED (Duplicate Order): fentaNYL (PF) 25 mcg IVP once sanjeev 10:40 CANCELLED (Duplicate Order): morphine 4 mg IVP once sanjeev 10:40 CANCELLED (Duplicate Order): morphine 4 mg IVP once sv 10:42 CANCELLED (Duplicate Order): morphine 4 mg IVP once sv 11:18 Drug: fentaNYL (PF) 25 mcg Route: IVP; Site: right forearm; sv 12:08 Follow up: Response: No adverse reaction; No change in condition sv 12:11 Drug: fentaNYL (PF) 25 mcg Route: IVP; Site: right forearm; sv 12:28 Drug: Potassium Effervescent Tablet 50 mEq Route: PO; sg Intake: 09:50 PO: 0ml; Total: 0ml. sv 10:43 PO: 0ml; Total: 0ml. sv 11:30 IV: 500ml; Total: 500ml. sv 13:15 PO: 100ml; Total: 600ml. sv Output: 09:50 Urine: 0ml; Total: 0ml. sv 10:43 Urine: 0ml; Total: 0ml. sv 13:15 Urine: 0ml; Total: 0ml. sv Outcome: 13:00 Discharge ordered by MD. sanjeev 13:15 Patient's length of stay in the Emergency Department was greater than 2 hours. xray sv delayPatient's length of stay extended due to 13:16 Discharged to home via wheelchair, with family. sv 13:16 Condition: stable 13:16 Discharge instructions given to patient, family, Instructed on discharge instructions, follow up and referral plans. no drinking with medication, no driving heavy equipment, medication usage, instructed pt and spouse not to take the Tylenol #3 and her [place] together, they have the same effect Demonstrated understanding of instructions, follow-up care, medications, not taking Tylenol #3 and [place] together, pt and spouse understood. Prescriptions given X 2. 13:25 Patient left the ED. sv Signatures: Dispatcher [employer] Sharon Larose RN RN sv Gay, Steven, RN RN sg Anderson, Corey, MD MD cha Corrections: (The following items were deleted from the chart) 13:17 13:16 Discharge instructions given to patient, family, Instructed on discharge sv instructions, follow up and referral plans. no drinking with medication, no driving heavy equipment, medication usage, instructed pt and spouse not to take the Tylenol #3 and her [place] together, they have the same effect Demonstrated understanding of instructions, follow-up care, medications, Prescriptions given X 2, sv
[2018-11-16 13:30] VITALS: TEMP 98
[2018-11-16 13:36] VITALS: BP 94/59; O2SAT 95
== END 2018-11-16 13:25 | disposition home or self-care (01) ==
LOC: ER 09:55
DX: S70.02XA Contusion of left hip, initial encounter (principal); E87.6 Hypokalemia; I10 Essential (primary) hypertension; W18.00XA Striking against unspecified object with subsequent fall, initial encounter; Y93.01 Activity, walking, marching and hiking; Y92.9 Unspecified place or not applicable; Z85.830 Personal history of malignant neoplasm of bone; Z88.5 Allergy status to narcotic agent
CPT/HCPCS: 36415; 72170; 80053; 85025; J2405; J3010 ×2

== ENCOUNTER 2018-11-18 08:42 | Emergency (ER) | payer OTHER ==
--- OUTSIDE RECORDS SUMMARY | 2018-11-18 08:58 | XMS REPORT ---
:1970 [facility] Address [address] [place] [address] Dr. Glez[address] [place] [id number] Care Team Providers Name Role Phone Unavailable Unavailable Unavailable Problems This patient has no known problems. Allergies, Adverse Reactions, Alerts This patient has no known allergies or adverse reactions. Medications This patient has no known medications.
[2018-11-18] MEDS ORDERED: FENTANYL CITR 100 MCG/2 ML ONE (09:24)
--- NOTE | 2018-11-18 09:30 | RAD REPORT ---
EXAM DESCRIPTION: CT - Head Brain Wo Cont - 11/18/2018 9:16 am CLINICAL HISTORY: fall, racoon eye with tarsal plate sparing, r/o basilar fx Trauma, head injury COMPARISON: Head Brain Wo Cont dated 02/24/2018; CTFACIAL BONES W MPR dated 04/25/2014; Abdomen Pelv is Wo Contrast dated 11/18/2018; Pelvis dated 11/16/2018 TECHNIQUE: All CT scans are performed using dose optimization technique as appropriate and may inclu de automated exposure control or mA/KV adjustment according to patient size. FINDINGS: No intracranial hemorrhage, hydrocephalus or extra-axial fluid collection.No areas of brai n edema or evidence of midline shift. The paranasal sinuses and mastoids are clear. The calvarium is intact. IMPRESSION: No acute intracranial abnormality.
[2018-11-18 09:34] LABS: Absolute Lymphocytes (CBC) 1.2 K/uL (0.7-4.9); Absolute Monocytes 0.4 K/uL (0.1-1.3); Absolute Neutrophil 6.2 K/uL (1.8-8.0); Basophils % 0.5 % (0-1.3); Eosinophils % 1.5 % (0-4.4); Hematocrit 37.3 % (36.0-45.0); Lymphocytes % 15.4 % (15.3-44.8); MPV 9.9 fL (7.6-11.3); Monocytes % 4.6 % (3.3-12.3); RBC Red Blood Cell Count 4.81 M/uL (3.86-4.86)
--- NOTE | 2018-11-18 09:39 | RAD REPORT ---
EXAM DESCRIPTION: CT - Abdomen Pelvis Wo Contrast - 11/18/2018 9:16 am CLINICAL HISTORY: Abdominal pain. hip pain. previous plain film COMPARISON: CTSTONE PROTOCOL dated 01/09/2014; Pelvis dated 11/16/2018 TECHNIQUE: CT imaging of the abdomen and pelvis was performed without contrast. Solid organ, bowel a nd vascular assessment is limited due to lack of IV and oral contrast. All CT scans are performed using dose optimization technique as appropriate and may include automated exposure control or mA/KV adjustment according to patient size. FINDINGS: The lower lung hobbs are clear.Small hiatal hernia. Noncontrast assessment of the liver demonstrates no acute process. No intra or extrahepatic biliary d ilatation. Cholecystectomy clips are seen.The spleen is mildly enlarged in size. Several venous colla terals are seen left upper quadrant. Pancreas, adrenal glands and kidneys show no acute process. No bowel obstruction, free air, free fluid or abscess. The appendix is normal. The left hip musculature is atrophic with the left femur absent. No acute fractures demonstrated. IMPRESSION: No acute intra-abdominal or pelvic findings. No acute trauma related bony finding. A limited non-contrast examination was performed as detailed.
[2018-11-18 09:45] LABS: ALT/SGPT 29 U/L (12-78); AST/SGOT 34 U/L (15-37); Albumin 3.5 g/dL (3.4-5.0); Alkaline Phosphatase 127 U/L (45-117); BUN Blood Urea Nitrogen 16 mg/dL (7-18); Bicarbonate 25 mmol/L (21-32); Bilirubin Total 0.3 mg/dL (0.2-1.0); Glucose Level 89 mg/dL (74-106); Potassium 3.8 mmol/L (3.5-5.1); Protein, Total 6.7 g/dL (6.4-8.2); Sodium Level 140 mmol/L (136-145)
--- NOTE | 2018-11-18 10:25 | ER ---
Nurse's Notes [facility] Name: Sohan Givens Age: 48 yrs Sex: Female : 1970 Arrival Date: 11/18/2018 Time: 08:46 Bed 6 Private MD: Diagnosis: Left hip contusion Presentation: 11/18 08:58 Presenting complaint: Patient states: had a fall on Thursday night, was in ER, had xray iw of pelvis done, was told she didn't have a fracture but has been having pain to left hip since then. Transition of care: patient was not received from another setting of care. Onset of symptoms was November 16, 2018. Risk Assessment: Do you want to hurt yourself or someone else? Patient reports no desire to harm self or others. Initial Sepsis Screen: Does the patient meet any 2 criteria? No. Patient's initial sepsis screen is negative. Does the patient have a suspected source of infection? No. Patient's initial sepsis screen is negative. Care prior to arrival: Medication(s) given: Tasia Breaux. 08:58 Method Of Arrival: Wheelchair iw 08:58 Acuity: MATTEO 3 iw Historical: - Allergies: 09:00 Demerol; iw - Home Meds: 10:36 aripiprazole Oral [Active]; Clonazepam Oral [Active]; gabapentin 300 mg Oral cap 1 cap bp 3 times per day [Active]; Lamictal Oral [Active]; levothyroxine oral [Active]; Metoprolol Tartrate Oral [Active]; Nexium Oral [Active]; - PMHx: 09:00 Anxiety; bone cancer; Hypertension; Hypothyroidism; osteoarthritis; Osteoporosis; iw Vitamin B, Ca, K, D deficiency; - PSHx: 09:00 L AKA; left hip; iw - Immunization history:: Adult Immunizations up to date. - Social history:: Smoking status: . - Ebola Screening: : Patient negative for fever greater than or equal to 101.5 degrees Fahrenheit, and additional compatible Ebola Virus Disease symptoms Patient denies exposure to infectious person Patient denies travel to an Ebola-affected area in the 21 days before illness onset No symptoms or risks identified at this time. Screenin:33 Abuse screen: Denies threats or abuse. Denies injuries from another. Nutritional bp screening: No deficits noted. Tuberculosis screening: No symptoms or risk factors identified. Fall Risk None identified. Assessment: 09:00 General: Appears in no apparent distress. uncomfortable, Behavior is cooperative, bp appropriate for age, anxious. Pain: Complains of pain in left hip. Neuro: Level of Consciousness is awake, alert, obeys commands, Oriented to person, place, time, situation, Appropriate for age. Cardiovascular: No deficits noted. Respiratory: No deficits noted. GI: No signs and/or symptoms were reported involving the gastrointestinal system. : No signs and/or symptoms were reported regarding the genitourinary system. EENT: No deficits noted. Derm: No deficits noted. Musculoskeletal: Amputation of left leg. Circulation, motion, and sensation intact. Range of motion: intact in all extremities. 10:32 Reassessment: PT D/C HOME VIA W/C WITH FAMILY, DX WITH LEFT HIP CONTUSION. bp Vital Signs: 09:01 BP 130 / 89; Pulse 111; Resp 18 S; Pulse Ox 100% on R/A; iw 10:28 BP 119 / 59; Pulse 90; Resp 16; Pulse Ox 98% ; bp ED Course: 08:46 Patient arrived in ED. mr 08:48 Flavio Duque, FÉLIX is Primary Nurse. bp 08:49 Kenyon Cisneros MD is Attending Physician. ps1 08:59 Triage completed. iw 09:01 Arm band placed on. iw 09:10 Initial lab(s) drawn, by me, sent to lab. Inserted saline lock: 24 gauge in right dh3 forearm, using aseptic technique. Blood collected. 09:14 CT completed. Patient tolerated procedure well. Patient moved to CT via stretcher. Patient moved back from CT. 09:17 CT Abd/Pelvis - Without Cont In Process Unspecified. EDMS 09:20 CT Head Brain wo Cont In Process Unspecified. EDMS 10:33 No provider procedures requiring assistance completed. IV discontinued, intact, bp bleeding controlled, No redness/swelling at site. Pressure dressing applied. 10:34 Patient has correct armband on for positive identification. Bed in low position. Call bp light in reach. Side rails up X2. Adult w/ patient. Administered Medications: 09:20 Drug: fentaNYL (PF) 100 mcg Route: IVP; Site: right forearm; bp 10:28 Follow up: Response: No adverse reaction bp 10:27 Drug: TORadol 30 mg Route: IVP; Site: right forearm; bp 10:28 Follow up: Response: No adverse reaction bp Outcome: 10:24 Discharge ordered by . ps1 10:33 Discharged to home via wheelchair, with family. bp 10:33 Condition: stable 10:33 Discharge instructions given to patient, Instructed on discharge instructions, follow up and referral plans. medication usage, Demonstrated understanding of instructions, follow-up care, medications, Prescriptions given X 2. 10:47 Patient left the ED. bp Signatures: Dispatcher [employer] EDDC CallEvelyn Almonte, Mehnaz Campos, RN RN iw Rosalia Santillan 3 Flavio Duque RN RN bp Kenyon Cisneros MD MD ps1 Corrections: (The following items were deleted from the chart) 09:01 08:58 Acuity: MATTEO 4 iw shanelle
--- NOTE | 2018-11-18 10:25 | EDPHYS ---
Physician Documentation [facility] Name: Sohan Givens Age: 48 yrs Sex: Female : 1970 Arrival Date: 11/18/2018 Time: 08:46 Bed 6 Private MD: ED Physician Kenyon Cisneros HPI: 11/18 10:15 This 48 yrs old Female presents to ER via Wheelchair with complaints of Hip ps1 Pain. 10:15 fall while walking dog. Hit head, has right black eye. Left hip pain s/p hip ps1 amputation. Soft tissue injury. Pain rated as severe. . Historical: - Allergies: 09:00 Demerol; iw - Home Meds: 10:36 aripiprazole Oral [Active]; Clonazepam Oral [Active]; gabapentin 300 mg Oral cap 1 cap bp 3 times per day [Active]; Lamictal Oral [Active]; levothyroxine oral [Active]; Metoprolol Tartrate Oral [Active]; Nexium Oral [Active]; - PMHx: 09:00 Anxiety; bone cancer; Hypertension; Hypothyroidism; osteoarthritis; Osteoporosis; iw Vitamin B, Ca, K, D deficiency; - PSHx: 09:00 L AKA; left hip; iw - Immunization history:: Adult Immunizations up to date. - Social history:: Smoking status: . - Ebola Screening: : Patient negative for fever greater than or equal to 101.5 degrees Fahrenheit, and additional compatible Ebola Virus Disease symptoms Patient denies exposure to infectious person Patient denies travel to an Ebola-affected area in the 21 days before illness onset No symptoms or risks identified at this time. ROS: 10:20 Constitutional: Negative for fever, chills, and weight loss, Neck: Negative for injury, ps1 pain, and swelling, Cardiovascular: Negative for chest pain, palpitations, and edema, Respiratory: Negative for shortness of breath, cough, wheezing, and pleuritic chest pain, Abdomen/GI: Negative for abdominal pain, nausea, vomiting, diarrhea, and constipation, Back: Negative for injury and pain. 10:20 MS/extremity: Positive for abrasion, contusion, decreased range of motion, pain, left hip amputation. . Exam: 10:20 Constitutional: This is a well developed, well nourished patient who is awake, alert, ps1 and in no acute distress. 10:20 ENT: Nares patent. No nasal discharge, no septal abnormalities noted. Tympanic membranes are normal and external auditory canals are clear. Oropharynx with no redness, swelling, or masses, exudates, or evidence of obstruction, uvula midline. Mucous membranes moist. Neck: Trachea midline, no thyromegaly or masses palpated, and no cervical lymphadenopathy. Supple, full range of motion without nuchal rigidity, or vertebral point tenderness. No Meningismus. Chest/axilla: Normal chest wall appearance and motion. Nontender with no deformity. No lesions are appreciated. Cardiovascular: Regular rate and rhythm. No gallops, murmurs, or rubs. Normal PMI, no JVD. No pulse deficits. Respiratory: Lungs have equal breath sounds bilaterally, clear to auscultation and percussion. No rales, rhonchi or wheezes noted. No increased work of breathing, no retractions or nasal flaring. Abdomen/GI: Soft, non-tender, with normal bowel sounds. No distension or tympany. No guarding or rebound. No evidence of tenderness throughout. Neuro: Awake and alert, GCS 15, oriented to person, place, time, and situation. Cranial nerves II-XII grossly intact. Sensory grossly intact. Psych: Awake, alert, with orientation to person, place and time. Behavior, mood, and affect are within normal limits. 10:20 Head/face: Noted is no obvious of injury or deformity except raccoon eye(s), on the right. 10:20 Musculoskeletal/extremity: Extremities: grossly normal except: noted in the left femoral area, left inguinal area and left hip: contusion, swelling, tenderness, s/p left hip amputation. Vital Signs: 09:01 BP 130 / 89; Pulse 111; Resp 18 S; Pulse Ox 100% on R/A; iw 10:28 BP 119 / 59; Pulse 90; Resp 16; Pulse Ox 98% ; bp MDM: 09:34 Patient medically screened. ps1 10:20 Data reviewed: vital signs, nurses notes, radiologic studies, and as a result, I will ps1 discharge patient. ED course: patient has multiple narcotic prescriptions that are still active. Will prescribe anti-inflammatories for soft tissue injury. Advised judicial use of narcotic pain medication and to follow up with her previous prescribers for refills if necessary. Stable for dc. . 11/18 08:57 Order name: CBC with Diff; Complete Time: 09:57 ps1 11/18 08:57 Order name: CMP; Complete Time: 09:57 ps1 11/18 08:50 Order name: CT Abd/Pelvis - Without Cont; Complete Time: 09:57 ps1 11/18 08:57 Order name: CT Head Brain wo Cont; Complete Time: 09:57 ps1 Administered Medications: 09:20 Drug: fentaNYL (PF) 100 mcg Route: IVP; Site: right forearm; bp 10:28 Follow up: Response: No adverse reaction bp 10:27 Drug: TORadol 30 mg Route: IVP; Site: right forearm; bp 10:28 Follow up: Response: No adverse reaction bp Disposition: 11/18/18 10:24 Discharged to Home. Impression: Left hip contusion. - Condition is Stable. - Discharge Instructions: Contusion. - Prescriptions for Anaprox DS 550 mg Oral Tablet - take 1 tablet by ORAL route every 12 hours As needed; 20 tablet. Medrol (Randy) 4 mg Oral Tablets, Dose Pack - take 1 tablet by ORAL route as directed - follow package instructions; 1 packet. - Medication Reconciliation Form, Thank You Letter, Antibiotic Education, Prescription Opioid Use form. - Follow up: Private Physician; When: As needed; Reason: Further diagnostic work-up, Continuance of care. Follow up: Emergency Department; When: As needed; Reason: Fever > 102 F, Worsening of condition. - Problem is an ongoing problem. - Symptoms have improved. Signatures: Dispatcher [employer] Mehnaz Blandon RN RN iw Flavio Duque RN RN bp Singer, Phillip, MD MD ps1 Corrections: (The following items were deleted from the chart) 10:47 10:24 11/18/2018 10:24 Discharged to Home. Impression: Left hip contusion. Condition is bp Stable. Forms are Medication Reconciliation Form, Thank You Letter, Antibiotic Education, Prescription Opioid Use. Follow up: Private Physician; When: As needed; Reason: Further diagnostic work-up, Continuance of care. Follow up: Emergency Department; When: As needed; Reason: Fever > 102 F, Worsening of condition. Problem is an ongoing problem. Symptoms have improved. ps1
[2018-11-18] MEDS ORDERED: KETOROLAC 30 MG/ML INJ ONE (10:32)
[2018-11-18 11:42] VITALS: BP 119/59; O2SAT 98
== END 2018-11-18 10:47 | disposition home or self-care (01) ==
LOC: ER 08:42
DX: S70.02XA Contusion of left hip, initial encounter (principal); W18.39XA Other fall on same level, initial encounter; Y93.K1 Activity, walking an animal; Y92.9 Unspecified place or not applicable; Z88.5 Allergy status to narcotic agent; Z85.830 Personal history of malignant neoplasm of bone; E03.9 Hypothyroidism, unspecified; I10 Essential (primary) hypertension; F41.9 Anxiety disorder, unspecified
CPT/HCPCS: 36415; 70450; 74176; 80053; 85025; 96374; 96375; 99284; J3010

== ENCOUNTER 2019-06-22 05:57 | Emergency (ER) | payer OTHER ==
[2019-06-22] MEDS ORDERED: ONDANSETRON 4 MG/2 ML VIAL ONE (06:29)
[2019-06-22] MEDS ORDERED: NA CHLORIDE 0.9% 1,000 ML ONE ×2 (06:29→07:57)
[2019-06-22] MEDS ORDERED: FAMOTIDINE 20 MG/2 ML VIAL IV ONE (06:30)
[2019-06-22 06:47] LABS: Absolute Lymphocytes (CBC) 0.6 K/uL (0.7-4.9); Basophils % 0.5 % (0-1.3); Hematocrit 38.1 % (36.0-45.0); Lymphocytes % 9.3 % (15.3-44.8); MPV 9.2 fL (7.6-11.3); RBC Red Blood Cell Count 4.87 M/uL (3.86-4.86)
[2019-06-22] MEDS ORDERED: MORPHINE 4 MG/ML SYR ONE ×2 (06:54→07:57)
[2019-06-22] MEDS ORDERED: PANTOPRAZOLE 40 MG INJ ONE (06:59)
[2019-06-22 07:00] LABS: ALT/SGPT 59 U/L (12-78); AST/SGOT 71 U/L (15-37); Albumin 3.7 g/dL (3.4-5.0); Alkaline Phosphatase 235 U/L (45-117); BUN Blood Urea Nitrogen 9 mg/dL (7-18); Bicarbonate 30 mmol/L (21-32); Bilirubin Direct 0.2 mg/dL (0-0.2); Bilirubin Total 0.6 mg/dL (0.2-1.0); Glucose Level 109 mg/dL (74-106); Lipase 1222 U/L (73-393); Sodium Level 138 mmol/L (136-145)
[2019-06-22 07:03] LABS: Potassium 2.8 mmol/L (3.5-5.1)
[2019-06-22] MEDS ORDERED: CEFTRIAXONE/SWI 1gm 1 GM/10 ML SYR ONE (07:12)
[2019-06-22] MEDS ORDERED: KCL 20 MEQ/100 mL IVPB 20 MEQ/100 ML BAG IV ONE (07:12)
[2019-06-22] MEDS ORDERED: PROMETHAZINE 25 MG/ML VIAL ONE (07:12)
[2019-06-22 07:36] LABS: Barbiturates NEGATIVE (NEGATIVE); Benzodiazepines NEGATIVE (NEGATIVE); Cocaine NEGATIVE (NEGATIVE); METHAMPHETAM NEGATIVE (NEGATIVE); Methadone NEGATIVE (NEGATIVE); Opiates POSITIVE (NEGATIVE); Phencyclidine NEGATIVE (NEGATIVE); THC Cannibis POSITIVE (NEGATIVE)
[2019-06-22 07:54] LABS: Urine Bacteria LOADED /HPF (<20); Urine Culture Reflex Order REFLEXED; Urine Mucus SLIGHT /HPF (NONE SEEN)
--- NOTE | 2019-06-22 08:16 | RAD REPORT ---
EXAM DESCRIPTION: CTAbdomen Pelvis W Contrast - 06/22/2019 7:29 am CLINICAL HISTORY: Abdominal pain. ABD PAIN COMPARISON: Abdomen Pelvis Wo Contrast dated 11/18/2018 TECHNIQUE: Biphasic CT imaging of the abdomen and pelvis was performed with 100 ml non-ionic IV cont rast. All CT scans are performed using dose optimization technique as appropriate and may include automated exposure control or mA/KV adjustment according to patient size. FINDINGS: The lung bases are clear. Diffuse fatty liver is present. Cholecystectomy clips. The proximal aspect of the common bile duct ap pears dilated to 18 mm with intraluminal soft tissue present, nonspecific. Mild peripancreatic inflam matory changes are noted most compatible with acute pancreatitis. A pseudocyst is not seen. Several l eft upper quadrant collateral vessels noted. The adrenal glands and kidneys show no acute process. Sp doyle is unremarkable. No bowel obstruction, free air, free fluid or abscess. Thickening of the colon is seen particularly t he right colon and a portion of the transverse colon suggesting a moderate colitis. Several diverticu la stem from the sigmoid colon. The appendix is normal. No evidence of significant lymphadenopathy. Previous left leg amputation seen. IMPRESSION: Thickening of the right colon is noted suggesting a moderate nonspecific colitis. No pne umatosis coli. Mild peripancreatic fat stranding is seen, suggesting acute pancreatitis. Advise correlation with vanessa lase/lipase levels. Fatty liver. Cholecystectomy with dilatation of the proximal CBD with intraluminal soft tissue density seen.
[2019-06-22] MEDS ORDERED: CIPROFLOXACIN 400mg IV 400 MG/200 ML BAG IV ONE (08:31)
[2019-06-22] MEDS ORDERED: METRONIDAZOLE 500mg IVPB 500 MG/100 ML BAG IV ONE (08:31)
--- NOTE | 2019-06-22 08:34 | ER ---
Nurse's Notes [facility] Name: Sohan Givens Age: 49 yrs Sex: Female : 1970 Arrival Date: 06/22/2019 Time: 06:09 Bed 15 Private MD: Diagnosis: Acute pancreatitis;Urinary tract infection, site not specified;Colitis;Dilated Common Bile Duct Presentation: 06/22 06:30 Presenting complaint: Patient states: abdominal pain started around 4am yesterday with rr5 vomiting non stop. i took bismo and nexium it did not work. i had a history of pancreatitis last time with the same symptoms. 06:30 Transition of care: patient was not received from another setting of care. Onset of rr5 symptoms was June 21, 2019. Risk Assessment: Do you want to hurt yourself or someone else? Patient reports no desire to harm self or others. Initial Sepsis Screen: Does the patient meet any 2 criteria? HR > 90 bpm. No. Patient's initial sepsis screen is negative. Does the patient have a suspected source of infection? No. Patient's initial sepsis screen is negative. Care prior to arrival: Medication(s) given: bismo and nexium. 06:30 Method Of Arrival: Wheelchair rr5 06:30 Acuity: MATTEO 3 rr5 PROFESSOR OF SURGERY: 07:44 LMP N/A - Hysterectomy tw2 Historical: - Allergies: 06:25 Demerol; rr5 - Home Meds: 06:25 aripiprazole Oral [Active]; Clonazepam Oral [Active]; gabapentin 300 mg Oral cap 1 cap rr5 3 times per day [Active]; Lamictal Oral [Active]; levothyroxine oral [Active]; Metoprolol Tartrate Oral [Active]; Nexium Oral [Active]; - PMHx: 06:25 Anxiety; bone cancer; Hypertension; Hypothyroidism; osteoarthritis; Osteoporosis; rr5 Vitamin B, Ca, K, D deficiency; Pancreatitis; - PSHx: 06:25 Cholecystectomy; rr5 06:25 amputated left leg; Hysterectomy; rr5 - Immunization history:: Adult Immunizations up to date. - Social history:: Smoking status: Patient uses tobacco products, smokes one pack cigarettes per day. Patient uses alcohol, occasionally. - Ebola Screening: : Patient negative for fever greater than or equal to 101.5 degrees Fahrenheit, and additional compatible Ebola Virus Disease symptoms Patient denies exposure to infectious person Patient denies travel to an Ebola-affected area in the 21 days before illness onset. Screenin:46 Abuse screen: Denies threats or abuse. Denies injuries from another. Nutritional rr5 screening: No deficits noted. Tuberculosis screening: No symptoms or risk factors identified. Fall Risk Gait- Impaired (20 pts.). Total Hartmann Fall Scale indicates Low Risk Score (25-44 pts). Fall prevention measures have been instituted. Side Rails Up X 2 Placed close to Nursing Station Frequent Obs/Assesments occuring Family Present and informed to notify staff if they need to leave bedside As available Patient and Family Educated on Fall Prevention Program and strategies. Assessment: 06:25 General: Appears uncomfortable, ill, Behavior is cooperative, anxious. Pain: Complains rr5 of pain in abdomen Pain does not radiate. Pain currently is 10 out of 10 on a pain scale. Quality of pain is described as aching, Pain began gradually, Is continuous. Neuro: Level of Consciousness is awake, alert, obeys commands, Oriented to person, place, time, situation, Appropriate for age. Cardiovascular: Capillary refill < 3 seconds Patient's skin is warm and dry. Respiratory: Airway is patent Respiratory effort is even, unlabored, Respiratory pattern is regular, symmetrical. GI: Abdomen is flat, Pt is actively vomiting bile, Bowel sounds present X 4 quads. Abdomen is tender to palpation Guarding noted X 4 quads. : Urine is cloudy. EENT: No signs and/or symptoms were reported regarding the EENT system. Derm: Skin is intact, Skin temperature is warm. Musculoskeletal: Circulation, motion, and sensation intact. Capillary refill < 3 seconds. 06:25 Musculoskeletal: Amputation of left leg. rr5 07:43 Reassessment: No changes from previously documented assessment. Patient and/or family tw2 updated on plan of care and expected duration. Pain level reassessed. Patient is alert, oriented x 3, equal unlabored respirations, skin warm/dry/pink. pt is not actively vomiting at this time. Vital Signs: 06:25 BP 149 / 80; Pulse 110; Resp 19; Temp 98.3; Pulse Ox 98% ; Weight 43.09 kg; Height 5 rr5 ft. 2 in. (157.48 cm); Pain 10/10; 07:43 BP 114 / 98; Pulse 83; Resp 17; Pulse Ox 100% on R/A; tw2 06:25 Body Mass Index 17.38 (43.09 kg, 157.48 cm) rr5 ED Course: 06:09 Patient arrived in ED. do 06:17 Avtar Daly, RN is Primary Nurse. rr5 06:22 Danish Cox PA is PHCP. cp 06:22 Td Bray MD is Attending Physician. cp 06:25 Arm band placed on right wrist. rr5 06:25 Patient has correct armband on for positive identification. Bed in low position. Call rr5 light in reach. Side rails up X2. Pulse ox on. NIBP on. 06:30 Inserted saline lock: 20 gauge in right forearm, using aseptic technique. Blood rr5 collected. 06:42 Triage completed. rr5 07:06 Primary Nurse role handed off by Avtar Daly, FÉLIX tw2 07:06 Rosy Carrillo RN is Primary Nurse. tw2 07:17 Urine Microscopic Only Sent. tw2 07:17 UDS Sent. tw2 07:31 CT Abd/Pelvis - IV Contrast Only In Process Unspecified. EDMS 08:40 Inserted saline lock: 22 gauge in left forearm, using aseptic technique. tw2 10:00 Report given to FÉLIX Pickens. tw2 10:17 transfer transportation to receiving facility. sg 10:46 No provider procedures requiring assistance completed. Patient transferred, IV remains sg in place. intact, No redness/swelling at site. Administered Medications: 06:30 Drug: NS 0.9% 1000 ml Route: IV; Rate: 1 bolus; Site: right forearm; rr5 08:05 Follow up: Response: No adverse reaction; IV Status: Completed infusion; IV Intake: tw2 1000ml 06:31 Drug: Zofran 4 mg Route: IVP; Site: right forearm; rr5 07:10 Follow up: Response: No adverse reaction; Nausea unchanged tw2 06:33 Drug: Pepcid 20 mg Route: IVP; Site: right forearm; rr5 08:06 Follow up: Response: No adverse reaction tw2 06:54 Drug: morphine 4 mg {Note: rass 0.} Route: IVP; Site: right forearm; rr5 07:51 Follow up: Response: No adverse reaction; Pain is unchanged, physician notified; RASS: tw2 Alert and Calm (0) 06:55 Drug: ProTONIX 40 mg Route: IVP; Site: right forearm; rr5 07:17 Follow up: Response: No adverse reaction tw2 07:13 Drug: Rocephin - (cefTRIAXone) 1 grams {Note: IVP available from pharmacy.} Route: tw2 IVPB; Infused Over: 5 mins; Site: right forearm; 07:18 Follow up: Response: No adverse reaction; IV Status: Completed infusion tw2 07:16 Drug: Phenergan 25 mg Route: IVP; Site: right antecubital; tw2 07:52 Follow up: Response: No adverse reaction; Nausea is decreased tw2 07:52 Drug: Potassium Chloride 20 mEq Route: IV; Rate: calculated rate; Site: right forearm; tw2 10:15 Follow up: Response: No adverse reaction; IV Status: Completed infusion sg 07:58 Drug: NS 0.9% 1000 ml Route: IV; Rate: 1 bolus; Site: right antecubital; tw2 10:00 Follow up: Response: No adverse reaction; IV Status: Completed infusion; IV Intake: tw2 1000ml 07:58 Drug: morphine 4 mg Route: IVP; Site: right antecubital; tw2 09:00 Follow up: Response: No adverse reaction; Pain is unchanged, physician notified; RASS: tw2 Alert and Calm (0) 08:42 Drug: metroNIDAZOLE 500 mg Volume: 100 ml; Route: IVPB; Infused Over: 30 mins; Site: tw2 left forearm; 09:37 Follow up: Response: No adverse reaction; IV Status: Completed infusion tw2 09:36 Drug: Dilaudid 0.5 mg Route: IVP; Site: left forearm; tw2 10:42 Follow up: Response: No adverse reaction; Pain is decreased; RASS: Alert and Calm (0) sg 09:38 Drug: Ciprofloxacin 400 mg Volume: 200 ml; Route: IVPB; Infused Over: 60 mins; Site: tw2 left forearm; 10:42 Follow up: Response: No adverse reaction; IV Status: Completed infusion sg Intake: 08:05 IV: 1000ml; Total: 1000ml. tw2 10:00 IV: 1000ml; Total: 2000ml. tw2 Outcome: 08:34 ER care complete, transfer ordered by . cp 10:45 Transferred by ground EMS to [facility], [facility], Transfer form completed. sg 10:45 Condition: good 10:45 Instructed on the need for transfer, safety practices, Demonstrated understanding of instructions. 10:46 Patient left the ED. sg Signatures: Dispatcher [employer] EDCelio Ascencio RN RN sg Danish Cox, ARCHANA PA cp Betty, Rosy Cabrera RN RN tw2 Avtar Daly RN RN rr5
--- NOTE | 2019-06-22 08:35 | EDPHYS ---
Physician Documentation [facility] Name: Sohan Givens Age: 49 yrs Sex: Female : 1970 Arrival Date: 06/22/2019 Time: 06:09 Bed 15 Private MD: ED Physician Td Bray HPI: 06/22 06:45 This 49 yrs old Female presents to ER via Wheelchair with complaints of cp Abdominal Pain, Vomiting. 06:45 The patient presents with abdominal pain in the epigastric area. cp 06:45 Onset: The symptoms/episode began/occurred yesterday. The symptoms radiate to cp Associated signs and symptoms: Pertinent positives: nausea and vomiting, anorexia, Pertinent negatives: blood in stools, constipation, diarrhea, fever, vomiting blood. The symptoms are described as constant. Modifying factors: the symptoms are aggravated by pressure. Severity of pain: in the emergency department the pain is a 10 / 10. 06:45 The patient has experienced similar episodes in the past, today's symptoms are similar, cp to when the patient was apparently diagnosed with pancreatitis. 06:45 Patient admits to drinking alcohol 3 days ago. 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 - Social history:: Smoking status: Patient uses tobacco products, smokes one pack cigarettes per day. Patient uses alcohol, occasionally. - Ebola Screening: : Patient negative for fever greater than or equal to 101.5 degrees Fahrenheit, and additional compatible Ebola Virus Disease symptoms Patient denies exposure to infectious person Patient denies travel to an Ebola-affected area in the 21 days before illness onset. ROS: 06:55 Constitutional: Negative for body aches, chills, fever, poor PO intake. cp 06:55 Eyes: Negative for injury, pain, redness, and discharge. cp 06:55 ENT: Negative for drainage from ear(s), ear pain, sore throat, difficulty swallowing, difficulty handling secretions. 06:55 Cardiovascular: Negative for chest pain, palpitations. 06:55 Respiratory: Negative for cough, shortness of breath, wheezing. 06:55 Abdomen/GI: Positive for abdominal pain, nausea and vomiting, anorexia, of the epigastric area, Negative for diarrhea, constipation, hematemesis, black/tarry stool, rectal bleeding. 06:55 Back: Positive for radiated pain. 06:55 : Negative for urinary symptoms. 06:55 Skin: Negative for cellulitis, rash. 06:55 Neuro: Negative for altered mental status, headache. 06:55 All other systems are negative. Exam: 07:00 Constitutional: The patient appears in no acute distress, alert, awake, cp non-diaphoretic, non-toxic, well developed, well nourished, uncomfortable. 07:00 Head/Face: Normocephalic, atraumatic. cp 07:00 Eyes: Periorbital structures: appear normal, Conjunctiva: normal, no exudate, no injection, Sclera: no appreciated abnormality, Lids and lashes: appear normal, bilaterally. 07:00 ENT: External ear(s): are unremarkable, Nose: is normal, Mouth: Lips: moist, Oral mucosa: pink and intact, moist, Posterior pharynx: is normal, airway is patent, no erythema, no exudate. 07:00 Neck: ROM/movement: is normal, is supple, without pain, no range of motions limitations, no nuchal rigidity. 07:00 Chest/axilla: Inspection: normal, Palpation: is normal, no crepitus, no tenderness. 07:00 Cardiovascular: Rate: tachycardic, Rhythm: regular, JVD: is not appreciated. 07:00 Respiratory: the patient does not display signs of respiratory distress, Respirations: normal, no use of accessory muscles, no retractions, no splinting, no tachypnea, labored breathing, is not present, Breath sounds: are clear throughout, no decreased breath sounds, no stridor, no wheezing. 07:00 Abdomen/GI: Inspection: abdomen appears normal, Bowel sounds: active, all quadrants, Palpation: soft, in all quadrants, severe abdominal tenderness, in the epigastric area, rebound tenderness, is not appreciated, voluntary guarding, is elicited in the epigastric area and right upper quadrant. 07:00 Skin: no rash present. 07:00 Neuro: Orientation: to person, place \T\ time. Mentation: is normal. Vital Signs: 06:25 BP 149 / 80; Pulse 110; Resp 19; Temp 98.3; Pulse Ox 98% ; Weight 43.09 kg; Height 5 rr5 ft. 2 in. (157.48 cm); Pain 10/10; 07:43 BP 114 / 98; Pulse 83; Resp 17; Pulse Ox 100% on R/A; tw2 06:25 Body Mass Index 17.38 (43.09 kg, 157.48 cm) rr5 MDM: 06:25 Patient medically screened. cp 07:00 Differential diagnosis: coronary artery disease, gastritis, Hepatitis, pancreatitis, cp Peptic Ulcer Disease, Perf. Duodenal Ulcer, Perf. Gastric Ulcer, choledocholithiasis. 08:32 Data reviewed: vital signs, nurses notes, lab test result(s), radiologic studies, CT cp scan. 08:32 Response to treatment: the patient's symptoms have mildly improved after treatment, and cp as a result, I will. 09:11 Physician consultation: DR Gregory Silvestre, internet manager \T\[facility] in [facility], will consult of patient and request transfer to services of hospitalist. 06/22 06:25 Order name: Basic Metabolic Panel; Complete Time: 07:08 5 06/22 09:10 Interpretation: Normal except: K 2.8; GLUC 109; CRE 0.52; CA 10.4. cp 06/22 06:25 Order name: CBC with Diff rr5 06/22 07:54 Interpretation: Normal except: RBC 4.87; MCV 78.3; MCH 25.2; PLT 145; RDW 19.5; JEANNE% cp 85.2; LYM% 9.3; LYMA 0.6. 06/22 06:25 Order name: Creatinine for Radiology; Complete Time: 07:08 rr5 06/22 06:25 Order name: Hepatic Function; Complete Time: 07:08 5 06/22 07:55 Interpretation: Normal except: AST 71; ALK 235. cp 06/22 06:25 Order name: Lipase; Complete Time: 07:08 rr5 06/22 07:55 Interpretation: Abnormal: LIP 1222. cp 06/22 06:50 Order name: Lactic Dehydrogenase; Complete Time: 07:53 cp 06/22 06:50 Order name: CT Abd/Pelvis - IV Contrast Only; Complete Time: 08:20 cp 06/22 07:09 Order name: UDS; Complete Time: 07:53 cp 06/22 07:53 Interpretation: Normal except: THC POSITIVE; OPI POSITIVE. cp 06/22 07:11 Order name: Urine Microscopic Only; Complete Time: 08:20 rr5 06/22 08:20 Interpretation: Normal except: UWBC 5-10; URBC 5-10; UBACT LOADED. cp 06/22 07:56 Order name: Urine Culture EDMS 06/22 10:26 Order name: Urine Dipstick--Ancillary (enter results) bd 06/22 06:25 Order name: IV Saline Lock; Complete Time: 06:36 rr5 06/22 06:25 Order name: Labs collected and sent; Complete Time: 06:36 rr5 06/22 06:50 Order name: Urine Dipstick-Ancillary (obtain specimen); Complete Time: 07:05 cp 06/22 06:50 Order name: Urine Test (obtain specimen); Complete Time: 07:05 cp Administered Medications: 06:30 Drug: NS 0.9% 1000 ml Route: IV; Rate: 1 bolus; Site: right forearm; rr5 08:05 Follow up: Response: No adverse reaction; IV Status: Completed infusion; IV Intake: tw2 1000ml 06:31 Drug: Zofran 4 mg Route: IVP; Site: right forearm; rr5 07:10 Follow up: Response: No adverse reaction; Nausea unchanged tw2 06:33 Drug: Pepcid 20 mg Route: IVP; Site: right forearm; rr5 08:06 Follow up: Response: No adverse reaction tw2 06:54 Drug: morphine 4 mg {Note: rass 0.} Route: IVP; Site: right forearm; rr5 07:51 Follow up: Response: No adverse reaction; Pain is unchanged, physician notified; RASS: tw2 Alert and Calm (0) 06:55 Drug: ProTONIX 40 mg Route: IVP; Site: right forearm; rr5 07:17 Follow up: Response: No adverse reaction tw2 07:13 Drug: Rocephin - (cefTRIAXone) 1 grams {Note: IVP available from pharmacy.} Route: tw2 IVPB; Infused Over: 5 mins; Site: right forearm; 07:18 Follow up: Response: No adverse reaction; IV Status: Completed infusion tw2 07:16 Drug: Phenergan 25 mg Route: IVP; Site: right antecubital; tw2 07:52 Follow up: Response: No adverse reaction; Nausea is decreased tw2 07:52 Drug: Potassium Chloride 20 mEq Route: IV; Rate: calculated rate; Site: right forearm; tw2 10:15 Follow up: Response: No adverse reaction; IV Status: Completed infusion sg 07:58 Drug: NS 0.9% 1000 ml Route: IV; Rate: 1 bolus; Site: right antecubital; tw2 10:00 Follow up: Response: No adverse reaction; IV Status: Completed infusion; IV Intake: tw2 1000ml 07:58 Drug: morphine 4 mg Route: IVP; Site: right antecubital; tw2 09:00 Follow up: Response: No adverse reaction; Pain is unchanged, physician notified; RASS: tw2 Alert and Calm (0) 08:42 Drug: metroNIDAZOLE 500 mg Volume: 100 ml; Route: IVPB; Infused Over: 30 mins; Site: tw2 left forearm; 09:37 Follow up: Response: No adverse reaction; IV Status: Completed infusion tw2 09:36 Drug: Dilaudid 0.5 mg Route: IVP; Site: left forearm; tw2 10:42 Follow up: Response: No adverse reaction; Pain is decreased; RASS: Alert and Calm (0) sg 09:38 Drug: Ciprofloxacin 400 mg Volume: 200 ml; Route: IVPB; Infused Over: 60 mins; Site: tw2 left forearm; 10:42 Follow up: Response: No adverse reaction; IV Status: Completed infusion Disposition: 06/22/19 08:34 Transfer ordered to [facility]. Diagnosis are Acute pancreatitis, Urinary tract infection, site not specified, Colitis, Dilated Common Bile Duct. - Reason for transfer: Higher level of care. - Accepting physician is Doctor. - Condition is Stable. - Problem is new. - Symptoms have improved. Signatures: Dispatcher [employer] EDMS Celio Soriano RN RN sg Danish Cox PA PA cp Rosy Carrillo RN RN tw2 Avtar Daly, RN RN rr5 Corrections: (The following items were deleted from the chart) 08:34 08:34 06/22/2019 08:34 Transfer ordered to [facility]. Diagnosis is cp Acute pancreatitis; Urinary tract infection, site not specified; Infectious gastroenteritis and colitis, unspecified. Reason for transfer: Higher level of care. Accepting physician is Doctor. Condition is Stable. Problem is new. Symptoms have improved. cp 09:10 07:54 Normal except: K 2.8; GLUC 109; CRE 0.52. cp cp 10:46 08:34 06/22/2019 08:34 Transfer ordered to [facility]. Diagnosis is sg Acute pancreatitis; Urinary tract infection, site not specified; Colitis; Dilated Common Bile Duct. Reason for transfer: Higher level of care. Accepting physician is Doctor. Condition is Stable. Problem is new. Symptoms have improved. cp
[2019-06-22] MEDS ORDERED: HYDROMORPHONE HCL 0.5 MG/0.5 ML INJ ONE (09:36)
[2019-06-22 10:46] LABS: Urine Blood 2+ (NEG); Urine Glucose NEGATIVE (NEG); Urine Protein 1+ (NEG); Urine Specific Gravity 1.025 (1.005-1.030)
[2019-06-22 11:01] VITALS: TEMP 98.3
[2019-06-22 11:02] VITALS: BP 114/98; O2SAT 100
[2019-06-22 11:40] LABS: Anisocytosis 1+; Blood Morphology Comment NOTED (NOT SEEN); Platelet Estimate ADEQ
== END 2019-06-22 10:46 | disposition short-term general hospital (02) ==
LOC: ER 05:57
DX: K85.90 Acute pancreatitis without necrosis or infection, unspecified (principal); N39.0 Urinary tract infection, site not specified; K52.9 Noninfective gastroenteritis and colitis, unspecified; K82.8 Other specified diseases of gallbladder; F17.210 Nicotine dependence, cigarettes, uncomplicated; I10 Essential (primary) hypertension; E03.9 Hypothyroidism, unspecified; F41.9 Anxiety disorder, unspecified; Z88.5 Allergy status to narcotic agent; Z85.830 Personal history of malignant neoplasm of bone
CPT/HCPCS: 87088; 85025; 87086; 80048; 36415; 83615; 80076; 80307 ×8; 83690; 74177; Q9967; J2550; C9113; J1170; J0696; J7030 ×2; J2405; J0744; 81003; 81015

== ENCOUNTER 2019-07-01 06:07 | Emergency (ER) | payer OTHER ==
[2019-07-01] MEDS ORDERED: ONDANSETRON 4 MG/2 ML VIAL ONE ×2 (06:55→08:46)
[2019-07-01] MEDS ORDERED: MORPHINE 4 MG/ML SYR ONE ×2 (06:55→09:08)
[2019-07-01] MEDS ORDERED: NA CHLORIDE 0.9% 1,000 ML ONE (06:55)
[2019-07-01 07:26] LABS: ALT/SGPT 16 U/L (12-78); AST/SGOT 27 U/L (15-37); Albumin 3.9 g/dL (3.4-5.0); Alkaline Phosphatase 118 U/L (45-117); BUN Blood Urea Nitrogen 14 mg/dL (7-18); Bicarbonate 23 mmol/L (21-32); Bilirubin Direct < 0.1 mg/dL (0-0.2); Bilirubin Total 0.5 mg/dL (0.2-1.0); Glucose Level 112 mg/dL (74-106); Lipase 111 U/L (73-393); Potassium 3.8 mmol/L (3.5-5.1); Protein, Total 7.7 g/dL (6.4-8.2); Sodium Level 136 mmol/L (136-145)
[2019-07-01 07:44] LABS: Absolute Lymphocytes (CBC) 0.6 K/uL (0.7-4.9); Basophils % 0.2 % (0-1.3); Hematocrit 41.4 % (36.0-45.0); MPV 9.8 fL (7.6-11.3); RBC Red Blood Cell Count 5.05 M/uL (3.86-4.86)
[2019-07-01 09:12] LABS: Urine White Blood Cell Casts OK
[2019-07-01 09:13] LABS: Anisocytosis 1+; Blood Morphology Comment NOTED (NOT SEEN); Ovalocytes 1+; Platelet Estimate ADEQ
--- NOTE | 2019-07-01 09:19 | EDPHYS ---
Physician Documentation [facility] Name: Sohan Givens Age: 49 yrs Sex: Female : 1970 Arrival Date: 07/01/2019 Time: 06:10 Bed 3 Private MD: NAKIA Physician Kenyon Cisneros HPI: 07/01 09:29 This 49 yrs old Female presents to ER via EMS with complaints of Abdominal kb Pain. 09:29 The patient presents with abdominal pain that is diffuse. Onset: The symptoms/episode kb began/occurred 2 day(s) ago. The symptoms do not radiate. Associated signs and symptoms: Pertinent positives: nausea and vomiting. The symptoms are described as constant. Modifying factors: The symptoms are alleviated by nothing, the symptoms are aggravated by nothing. Severity of pain: At its worst the pain was moderate in the emergency department the pain is unchanged. The patient has experienced similar episodes in the past. The patient has been recently seen by a physician: [facility] for pancreatitis, discharged Thursday. 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 - Social history:: Smoking status: Patient uses tobacco products, smokes one pack cigarettes per day. - Ebola Screening: : No symptoms or risks identified at this time. ROS: 11:31 Constitutional: Negative for fever, chills, and weight loss, ENT: Negative for injury, kb pain, and discharge, Neck: Negative for injury, pain, and swelling, Cardiovascular: Negative for chest pain, palpitations, and edema, Respiratory: Negative for shortness of breath, cough, wheezing, and pleuritic chest pain, Back: Negative for injury and pain, MS/Extremity: Negative for injury and deformity, Skin: Negative for injury, rash, and discoloration, Neuro: Negative for headache, weakness, numbness, tingling, and seizure. 11:31 Abdomen/GI: Positive for abdominal pain, nausea and vomiting. Exam: 11:31 Constitutional: This is a well developed, well nourished patient who is awake, alert, kb and in no acute distress. Head/Face: Normocephalic, atraumatic. ENT: Nares patent. No nasal discharge, no septal abnormalities noted. Tympanic membranes are normal and external auditory canals are clear. Oropharynx with no redness, swelling, or masses, exudates, or evidence of obstruction, uvula midline. Mucous membranes moist. Neck: Trachea midline, no thyromegaly or masses palpated, and no cervical lymphadenopathy. Supple, full range of motion without nuchal rigidity, or vertebral point tenderness. No Meningismus. Chest/axilla: Normal chest wall appearance and motion. Nontender with no deformity. No lesions are appreciated. Cardiovascular: Regular rate and rhythm with a normal S1 and S2. No gallops, murmurs, or rubs. Normal PMI, no JVD. No pulse deficits. Respiratory: Lungs have equal breath sounds bilaterally, clear to auscultation and percussion. No rales, rhonchi or wheezes noted. No increased work of breathing, no retractions or nasal flaring. Back: No spinal tenderness. No costovertebral tenderness. Full range of motion. Skin: Warm, dry with normal turgor. Normal color with no rashes, no lesions, and no evidence of cellulitis. MS/ Extremity: Pulses equal, no cyanosis. Neurovascular intact. Full, normal range of motion. Left leg amputation Neuro: Awake and alert, GCS 15, oriented to person, place, time, and situation. Cranial nerves II-XII grossly intact. Motor strength 5/5 in all extremities. Sensory grossly intact. Cerebellar exam normal. Normal gait. 11:31 Abdomen/GI: Inspection: abdomen appears normal, Bowel sounds: normal, in all quadrants, Palpation: soft, in all quadrants, moderate abdominal tenderness, in the right upper quadrant, left upper quadrant, right lower quadrant and left lower quadrant. Vital Signs: 06:12 BP 150 / 85; Pulse 90; Resp 18; Temp 98.8(TE); Pulse Ox 100% on R/A; Weight 43.09 kg ak1 (R); Height 5 ft. 1 in. (154.94 cm) (R); Pain 8/10; 07:34 BP 153 / 69; Pulse 101; Resp 19 S; Pulse Ox 100% on R/A; Pain 6/10; jl7 09:01 BP 136 / 83; Pulse 86; Resp 14; Pulse Ox 100% ; bp 06:12 Body Mass Index 17.95 (43.09 kg, 154.94 cm) ak1 MDM: 06:14 Patient medically screened. kb 11:33 Data reviewed: vital signs, nurses notes. Data interpreted: Pulse oximetry: on room air kb is 100 %. Interpretation: normal. Counseling: I had a detailed discussion with the patient and/or guardian regarding: the historical points, exam findings, and any diagnostic results supporting the discharge/admit diagnosis, lab results, radiology results, the need for outpatient follow up, a family practitioner, to return to the emergency department if symptoms worsen or persist or if there are any questions or concerns that arise at home. 07/01 06:17 Order name: Basic Metabolic Panel; Complete Time: 07:27 kb 07/01 06:17 Order name: CBC with Diff; Complete Time: 09:17 kb 07/01 06:17 Order name: Hepatic Function; Complete Time: 07:27 kb 07/01 06:17 Order name: Lipase; Complete Time: 07:27 kb 07/01 07:28 Order name: CT Abd/Pelvis - IV Contrast Only kb 07/01 08:41 Order name: CBC Smear Scan; Complete Time: 09:17 EDMS 07/01 06:17 Order name: IV Saline Lock; Complete Time: 06:56 kb 07/01 06:17 Order name: Labs collected and sent; Complete Time: 06:56 kb 07/01 07:08 Order name: Labs - recollect needed; Complete Time: 07:15 eb Administered Medications: 07:02 Drug: NS 0.9% 1000 ml Route: IV; Rate: 1000 ml; Site: left upper arm; bb 08:30 Follow up: Response: No adverse reaction; IV Status: Completed infusion; IV Intake: jl7 1000ml 07:03 Drug: Zofran 4 mg Route: IVP; Site: left upper arm; bb 07:30 Follow up: Response: No adverse reaction; Nausea is decreased jl7 07:03 Drug: morphine 4 mg {Note: RASS 0.} Route: IVP; Site: left upper arm; bb 07:30 Follow up: Response: No adverse reaction; Pain is decreased jl7 08:50 Drug: Zofran 4 mg Route: IVP; Site: left upper arm; jl7 09:04 Follow up: Response: Nausea is decreased bp 09:11 Drug: morphine 4 mg Route: IVP; Site: left upper arm; bp Disposition: 07/01/19 09:18 Discharged to Home. Impression: Generalized abdominal pain. - Condition is Stable. - Discharge Instructions: Abdominal Pain, Adult, [id number]. - Prescriptions for Bentyl 20 mg Oral Tablet - take 1 tablet by ORAL route every 6 hours As needed; 20 tablet. Zofran 4 mg Oral Tablet - take 1 tablet by ORAL route every 6 hours As needed; 20 tablet. - Medication Reconciliation Form, Thank You Letter, Antibiotic Education, Prescription Opioid Use, SBAR form form. - Follow up: Emergency Department; When: As needed; Reason: Worsening of condition. Follow up: Private Physician; When: 2 - 3 days; Reason: Recheck today's complaints, Continuance of care, Re-evaluation by your physician. Addendum: 07/06/2019 06:57 Co-signature as Attending Physician, Kenyon Cisneros MD Available for consultation at p s1 all times . Signatures: Dispatcher [employer] EDMS Bren Diaz, FIBROUS WALLBOARD INSPECTOR-C FIBROUS WALLBOARD INSPECTOR-Bethany Olson RN RN Elvie Walters RN RN ak1 Reyna Shafer RN FÉLIX jl7 Flavio Duque RN Kenyon Reardon MD MD [facility] [place] Ceja Corrections: (The following items were deleted from the chart) 07/01 09:49 09:18 07/01/2019 09:18 Discharged to Home. Impression: Generalized abdominal pain. jl7 Condition is Stable. Forms are SBAR form, Medication Reconciliation Form, Thank You Letter, Antibiotic Education, Prescription Opioid Use. Follow up: Emergency Department; When: As needed; Reason: Worsening of condition. Follow up: Private Physician; When: 2 - 3 days; Reason: Recheck today's complaints, Continuance of care, Re-evaluation by your physician. kb
--- NOTE | 2019-07-01 09:19 | ER ---
Nurse's Notes [facility] Name: Sohan Givens Age: 49 yrs Sex: Female : 1970 Arrival Date: 07/01/2019 Time: 06:10 Bed 3 Private MD: Diagnosis: Generalized abdominal pain Presentation: 07/01 06:15 Presenting complaint: Patient states: upper left quadrant pain with N/V. pt was ak1 discharged from [facility] 06/27/19. Transition of care: patient was not received from another setting of care. Onset of symptoms is unknown. Risk Assessment: Do you want to hurt yourself or someone else? Patient reports no desire to harm self or others. Initial Sepsis Screen: Does the patient meet any 2 criteria? No. Patient's initial sepsis screen is negative. Does the patient have a suspected source of infection? No. Patient's initial sepsis screen is negative. Note pt c/o that her last BM was "over 1 week ago". Care prior to arrival: None. 06:15 Method Of Arrival: EMS: [email or web address] ak 06:15 Acuity: MATTEO 3 ak1 Triage Assessment: 06:22 General: Appears in no apparent distress. uncomfortable, Behavior is cooperative. Pain: ak1 Complains of pain in left upper quadrant. EENT: No signs and/or symptoms were reported regarding the EENT system. Neuro: No deficits noted. Cardiovascular: No deficits noted. Respiratory: No deficits noted. GI: Abdomen is flat, Reports upper abdominal pain, nausea, vomiting. : No signs and/or symptoms were reported regarding the genitourinary system. Derm: No signs and/or symptoms reported regarding the dermatologic system. Musculoskeletal: Amputation of left leg. 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 - Social history:: Smoking status: Patient uses tobacco products, smokes one pack cigarettes per day. - Ebola Screening: : No symptoms or risks identified at this time. Screenin:22 Abuse screen: Denies threats or abuse. Denies injuries from another. Nutritional ak1 screening: No deficits noted. Tuberculosis screening: No symptoms or risk factors identified. Fall Risk None identified. Assessment: 07:04 General: Appears uncomfortable, slender, Behavior is cooperative, anxious. Pain: bb Complains of pain in abdomen Pain currently is 8 out of 10 on a pain scale. Neuro: Level of Consciousness is awake, alert, obeys commands, Oriented to person, place, time, situation. Cardiovascular: Heart tones S1 S2 present Capillary refill < 3 seconds Patient's skin is warm and dry. Respiratory: Airway is patent Respiratory effort is even, unlabored, Respiratory pattern is regular, Breath sounds are clear. GI: Abdomen is non-distended, Bowel sounds hyperactive in right upper quadrant, left upper quadrant, right lower quadrant and left lower quadrant Abd is soft X 4 quads Abdomen is tender to palpation X 4 quads. Derm: Skin is pink, warm \\T\\ dry. Musculoskeletal: Amputation of left leg. 07:34 Reassessment: Patient appears in no apparent distress at this time. pain rated 6/10 at jl7 this time. Pt reports she was at [facility] in [place] for pancreatitis due to an ulcer, not drinking. ERP notified and reviewing discharge papers Patient states symptoms have improved. 08:30 Reassessment: Pt c/o nausea, ERP notified see MAR for orders. jl7 09:05 Reassessment: PT C/O PAIN, PROVIDER NOTIFIED. bp Vital Signs: 06:12 BP 150 / 85; Pulse 90; Resp 18; Temp 98.8(TE); Pulse Ox 100% on R/A; Weight 43.09 kg ak1 (R); Height 5 ft. 1 in. (154.94 cm) (R); Pain 8/10; 07:34 BP 153 / 69; Pulse 101; Resp 19 S; Pulse Ox 100% on R/A; Pain 6/10; jl7 09:01 BP 136 / 83; Pulse 86; Resp 14; Pulse Ox 100% ; bp 06:12 Body Mass Index 17.95 (43.09 kg, 154.94 cm) ak1 ED Course: 06:10 Patient arrived in ED. fc 06:12 Arm band placed on Patient placed in an exam room, on a stretcher, on pulse oximetry, ak1 Patient notified of wait time. 06:14 Bren Diaz FNP-C [facility] kb 06:14 Kenyon Cisneros MD is Attending Physician. kb 06:16 Triage completed. ak1 06:23 Patient has correct armband on for positive identification. Bed in low position. Call ak1 light in reach. Side rails up X 1. Pulse ox on. NIBP on. 06:50 Inserted 18 gauge 8 cm midline to left upper arm basilic vein on first attempt. Line fc with good blood return and flushes well. 07:30 Reyna Shafer RN is Primary Nurse. jl7 07:45 CT Abd/Pelvis - IV Contrast Only In Process Unspecified. EDMS 10:04 No provider procedures requiring assistance completed. IV discontinued, intact, bp bleeding controlled, No redness/swelling at site. Pressure dressing applied. Administered Medications: 07:02 Drug: NS 0.9% 1000 ml Route: IV; Rate: 1000 ml; Site: left upper arm; bb 08:30 Follow up: Response: No adverse reaction; IV Status: Completed infusion; IV Intake: jl7 1000ml 07:03 Drug: Zofran 4 mg Route: IVP; Site: left upper arm; bb 07:30 Follow up: Response: No adverse reaction; Nausea is decreased jl7 07:03 Drug: morphine 4 mg {Note: RASS 0.} Route: IVP; Site: left upper arm; bb 07:30 Follow up: Response: No adverse reaction; Pain is decreased jl7 08:50 Drug: Zofran 4 mg Route: IVP; Site: left upper arm; jl7 09:04 Follow up: Response: Nausea is decreased bp 09:11 Drug: morphine 4 mg Route: IVP; Site: left upper arm; bp Intake: 08:30 IV: 1000ml; Total: 1000ml. jl7 Outcome: 09:18 Discharge ordered by . kb 09:49 Patient left the ED. jl7 10:04 Discharged to home via wheelchair, with family. bp 10:04 Condition: stable 10:04 Discharge instructions given to patient, Instructed on discharge instructions, follow up and referral plans. Demonstrated understanding of instructions, follow-up care, medications, Prescriptions given X 2. Signatures: Dispatcher [employer] EDNM Bren Diaz, NOE-Abby VISUALIZATION DEVELOPER-Noemi Powell RN RN fc Bethany Sloan RN RN bb Elvie Galicia RN RN ak1 Reyna Shafer RN RN jl7 Flavio Duque RN RN bp
[2019-07-01 10:41] VITALS: TEMP 98.8; O2SAT 100
[2019-07-01 10:44] VITALS: BP 136/83
--- NOTE | 2019-07-04 11:35 | RAD REPORT ---
EXAM DESCRIPTION: CT ABDOMEN AND PELVIS W/O CONTRAST CLINICAL HISTORY: Abdominal pain, recent pancreatitis. COMPARISON: CT June 22, 2019 TECHNIQUE: Biphasic axial 5 mm thick images of the abdomen and pelvis were obtained following IV contrast. No oral contrast administered. This exam was performed according to our departmental dose-optimization program, which includes automated exposure control, adjustment of the mA and/or kV according to patient size and/or use of iterative reconstruction technique. FINDINGS: No suspicious finding in the lung bases. No focal liver abnormality is seen. The gallbladder is absent. Biliary tree is 8 mm which is normal in range for a post cholecystectomy patient. No intrahepatic biliary dilatation. No clinical findings to indicate abnormal lab value. Retained duct stone not suspected. No pancreatic mass. No peripancreatic fluid or inflammatory stranding. No finding for residual or recurrent pancreatitis. No splenic abnormality. The patient does have large dilated veins in the left upper quadrant similar to comparison. No adrenal abnormalities. Symmetric renal function is present with no hydronephrosis or obstructing calculus. No pyelonephritis or suspicious renal mass. No urinary bladder abnormality is seen. The uterus is absent. The ovaries are absent or atrophic. No stomach or small bowel acute finding. There is moderate stool volume throughout the colon. Diverticulosis is present without diverticulitis. The right side colon wall thickening seen June 22, 2019 has resolved or nearly fully resolved. No stranding changes. No suspicion for recurrent colitis. An underlying mass is not identifiable. Mucosal level mass assessment is limited in this region. No free air, free fluid or inflammatory stranding. No mass or bulky lymphadenopathy. No acute bone finding. The patient is status post left femur resection. No new soft tissue finding in this region. The patient does have focal soft tissue opacification left mid abdomen believed to be from medication injection sites. IMPRESSION: 1. No suspicion for residual or recurrent pancreatitis. Extrahepatic biliary tree is prominent but not outside of normal for a post cholecystectomy patient. 2. Colon wall thickening seen on June 22, 2019 imaging is either resolved or nearly fully resolved. An underlying colon mass is not suspected though CT imaging is limited in the absence of IV contrast and in the presence of retained stool.
== END 2019-07-01 09:49 | disposition home or self-care (01) ==
LOC: ER 06:07
DX: R10.84 Generalized abdominal pain (principal); R11.2 Nausea with vomiting, unspecified; I10 Essential (primary) hypertension; F41.9 Anxiety disorder, unspecified; E03.9 Hypothyroidism, unspecified; F17.210 Nicotine dependence, cigarettes, uncomplicated; Z85.830 Personal history of malignant neoplasm of bone; Z88.5 Allergy status to narcotic agent
CPT/HCPCS: 96361; 85025; 80048; 36415; 80076; 83690; 74177; 96375; 96374; 99284; Q9967; J7030; J2405 ×2

== ENCOUNTER 2019-09-15 00:02 | Emergency (ER) | payer OTHER ==
--- OUTSIDE RECORDS SUMMARY | 2019-09-15 00:06 | XMS REPORT ---
:1970 Author Organization [facility] Address [address] [place] [address] [address] [place] [address] Care Team Providers Name Role Phone JOSE CALDERON Unavailable Unavailable Problems This patient has no known problems. Allergies, Adverse Reactions, Alerts This patient has no known allergies or adverse reactions. Medications This patient has no known medications. Results Test Description Test Time Test Comments Text Results Atomic Results Result Comments [place], ERCP 2019-07-05 15:53:00 Reason for exam:->Abnormal PROCEDURE PERFORMED IN O.R. abdominal imaging - PLEASE REFER TO THE INTRAOPERATIVE REPORT. REHENSIVE METABOLIC PANEL 2019-06-27 05:57:00 Test Item Value Reference Range Comments TOTAL PROTEIN (BEAKER) (test 5.2 gm/dL 6.0-8.3 hnum=952) ALBUMIN (BEAKER) (test 2.9 g/dL 3.5-5.0 glug=0175) ALKALINE PHOSPHATASE 108 U/L 40-150 (BEAKER) (test rsft=863) BILIRUBIN TOTAL (BEAKER) 0.2 mg/dL 0.2-1.2 (test vwub=177) SODIUM (BEAKER) (test 134 meq/L 136-145 szmy=157) POTASSIUM (BEAKER) (test 4.4 meq/L 3.5-5.1 jkoo=220) CHLORIDE (BEAKER) (test 106 meq/L 98-107 mggs=397) CO2 (BEAKER) (test orse=077) 25 meq/L 22-29 BLOOD UREA NITROGEN (BEAKER) 5 mg/dL 7-21 (test xyus=127) CREATININE (BEAKER) (test 0.56 mg/dL 0.57-1.25 jykp=625) GLUCOSE RANDOM (BEAKER) 86 mg/dL 70-105 (test czua=102) CALCIUM (BEAKER) (test 9.2 mg/dL 8.4-10.2 ezhw=039) AST (SGOT) (BEAKER) (test 18 U/L 5-34 hssd=588) ALT (SGPT) (BEAKER) (test 18 U/L 6-55 mwht=188) EGFR (BEAKER) (test 116 mL/min/1.73 sq m ESTIMATED GFR IS NOT dufq=7255) ACCURATE CREATININE CLEARANCE IN PREDICTING GLOMERULAR FILTRATION RATE. ESTIMATED GFR IS NOT APPLICABLE FOR DIALYSIS PATIENTS. CBC W/PLT COUNT & AUTO [id number] 05:10:00 Test Item Value Reference Range Comments WHITE BLOOD CELL COUNT (BEAKER) (test awbz=216) 5.4 K/ L 3.5-10.5 RED BLOOD CELL COUNT (BEAKER) (test rxld=216) 4.06 M/ L 3.93-5.22 HEMOGLOBIN (BEAKER) (test zghd=734) 10.0 GM/DL 11.2-15.7 HEMATOCRIT (BEAKER) (test glrr=539) 34.9 % 34.1-44.9 MEAN CORPUSCULAR VOLUME (BEAKER) (test njqu=167) 86.0 fL 79.4-94.8 MEAN CORPUSCULAR HEMOGLOBIN (BEAKER) (test 24.6 pg 25.6-32.2 ereh=832) MEAN CORPUSCULAR HEMOGLOBIN CONC (BEAKER) (test 28.7 GM/DL 32.2-35.5 xgji=361) RED CELL DISTRIBUTION WIDTH (BEAKER) (test 19.7 % 11.7-14.4 jkev=656) PLATELET COUNT (BEAKER) (test ujzf=837) 176 K/CU MM 150-450 MEAN PLATELET VOLUME (BEAKER) (test wrtl=723) 11.6 fL 9.4-12.3 NUCLEATED RED BLOOD CELLS (BEAKER) (test 0 /100 WBC 0-0 txlp=526) NEUTROPHILS RELATIVE PERCENT (BEAKER) (test 62 % kqcq=151) LYMPHOCYTES RELATIVE PERCENT (BEAKER) (test 23 % kbbz=818) MONOCYTES RELATIVE PERCENT (BEAKER) (test 9 % awul=592) EOSINOPHILS RELATIVE PERCENT (BEAKER) (test 5 % wuyg=466) BASOPHILS RELATIVE PERCENT (BEAKER) (test 1 % zgje=270) NEUTROPHILS ABSOLUTE COUNT (BEAKER) (test 3.35 K/ L 1.56-6.13 hart=614) LYMPHOCYTES ABSOLUTE COUNT (BEAKER) (test 1.23 K/ L 1.18-3.74 ljks=997) MONOCYTES ABSOLUTE COUNT (BEAKER) (test 0.47 K/ L 0.24-0.36 ofyf=655) EOSINOPHILS ABSOLUTE COUNT (BEAKER) (test 0.28 K/ L 0.04-0.36 rpmk=433) BASOPHILS ABSOLUTE COUNT (BEAKER) (test 0.04 K/ L 0.01-0.08 tmst=276) IMMATURE GRANULOCYTES-RELATIVE PERCENT (BEAKER) 1 % 0-1 (test aqrj=9391) MR, ABDOMEN, [id number] 19:37:00Reason for exam:->evaluate for small duct PSC Anesthesia:->NoneFINAL REPORT TECHNIQUE: MRI of the abdomen and MRCP WITHOUT intravenous contrast. 3-D volume reconstructions were obtained to evaluate the biliary ductal system. INDICATION : Biliary obstruction suspectedevaluate for small duct PSC. COMPARISON: ERCP from 06/24/2019. CT from 06/22/2019. FINDINGS: ABSENCE OF INTRAVENOUS CONTRAST DECREASES SENSITIVITY FOR DETECTION OF FOCAL LESIONS AND VASCULAR PATHOLOGY. LOWER THORAX: Trace right pleural effusion. LIVER: Mild loss of signal in theliver on out of phase imaging. No focal hepatic lesions. BILIARY: Prior cholecystomy. The common bile duct stones and sludge have been removed. Mild pneumobilia. The questionable narrowing of the central left intrahepatic ducts on the MRCP is likely due to pneumobilia.SPLEEN: 13.5 cm splenomegaly.PANCREAS: No focal masses or ductal dilatation. Pancreas divisum. Mild interstitial edema the pancreas with some surrounding fat stranding. A cystic lesion in the pancreatic body measures 0.3 cm on axial T2-weighted image 19. ADRENALS: No adrenal nodules.KIDNEYS/URETERS: No hydronephrosis or solid mass lesions. PERITONEUM/RETROPERITONEUM: No free fluid.LYMPH NODES: No lymphadenopathy.VESSELS: Prominent splenic collaterals. GI TRACT: No distention or wall thickening. The appendix is normal. BONES AND SOFTTISSUES: Bilateral breast augmentation. IMPRESSION: 1.The common bile duct sludge and stones withinremoved. The common bile duct is normal in caliber without residual choledocholithiasis. 2.No bile duct irregularity to suggest primary sclerosing cholangitis. 3.Findings are most consistent with acuteinterstitial edematous pancreatitis (although evaluation is limited without the use of intravenous contrast) without a peripancreatic fluid collection. 4.A cystic lesion in the pancreatic body measures0.3 cm and is nonspecific but could be a small, sidebranch intraductal papillary mucinous neoplasm. A follow-up MRI of the abdomen with MRCP is recommended in one year to document stability. 5.Mild diffuse fatty infiltration of the liver. 6.Mild splenomegaly. 7.There are prominent splenic collaterals,likely from either splenic vein thrombosis or severe splenic vein narrowing. Signed: Jack Hopkins MDReport Verified Date/Time: 06/25/2019 19:37:59 Reading Location: [facility] C013Y CT Body Reading Room [id number] 05:56:00 Test Item Value Reference Range Comments PHOSPHORUS (BEAKER) (test pcrf=184) 2.4 mg/dL 2.3-4.7 [id number] 05:56:00 Test Item Value Reference Range Comments MAGNESIUM (BEAKER) (test xmcp=483) 1.8 mg/dL 1.6-2.6 BASIC METABOLIC [id number] 05:56:00 Test Item Value Reference Range Comments SODIUM (BEAKER) (test 136 meq/L 136-145 vaxn=623) POTASSIUM (BEAKER) (test 4.7 meq/L 3.5-5.1 jwfn=844) CHLORIDE (BEAKER) (test 106 meq/L 98-107 kltl=317) CO2 (BEAKER) (test 27 meq/L 22-29 qfqy=802) BLOOD UREA NITROGEN 6 mg/dL 7-21 (BEAKER) (test oeat=159) CREATININE (BEAKER) (test 0.64 mg/dL 0.57-1.25 pctp=576) GLUCOSE RANDOM (BEAKER) 141 mg/dL 70-105 (test rnmy=783) CALCIUM (BEAKER) (test 9.1 mg/dL 8.4-10.2 hite=668) EGFR (BEAKER) (test 99 mL/min/1.73 sq m ESTIMATED GFR IS NOT mnzk=2157) ACCURATE CREATININE CLEARANCE IN PREDICTING GLOMERULAR FILTRATION RATE. ESTIMATED GFR IS NOT APPLICABLE FOR DIALYSIS PATIENTS. HEPATIC FUNCTION [id number] 05:56:00 Test Item Value Reference Range Comments TOTAL PROTEIN (BEAKER) (test tbaq=730) 4.9 gm/dL 6.0-8.3 ALBUMIN (BEAKER) (test iwbz=9741) 2.8 g/dL 3.5-5.0 BILIRUBIN TOTAL (BEAKER) (test qcgq=074) 0.2 mg/dL 0.2-1.2 BILIRUBIN DIRECT (BEAKER) (test cufm=711) 0.1 mg/dL 0.1-0.5 ALKALINE PHOSPHATASE (BEAKER) (test fvla=704) 137 U/L 40-150 AST (SGOT) (BEAKER) (test bywk=174) 34 U/L 5-34 ALT (SGPT) (BEAKER) (test cpxd=402) 29 U/L 6-55 CBC W/PLT COUNT & AUTO [id number] 05:34:00 Test Item Value Reference Range Comments WHITE BLOOD CELL COUNT (BEAKER) (test tybp=204) 6.7 K/ L 3.5-10.5 RED BLOOD CELL COUNT (BEAKER) (test vuxx=467) 3.65 M/ L 3.93-5.22 HEMOGLOBIN (BEAKER) (test otku=571) 9.1 GM/DL 11.2-15.7 HEMATOCRIT (BEAKER) (test psnf=814) 31.1 % 34.1-44.9 MEAN CORPUSCULAR VOLUME (BEAKER) (test lqim=475) 85.2 fL 79.4-94.8 MEAN CORPUSCULAR HEMOGLOBIN (BEAKER) (test 24.9 pg 25.6-32.2 xuit=987) MEAN CORPUSCULAR HEMOGLOBIN CONC (BEAKER) (test 29.3 GM/DL 32.2-35.5 wzhc=042) RED CELL DISTRIBUTION WIDTH (BEAKER) (test 18.9 % 11.7-14.4 kzak=264) PLATELET COUNT (BEAKER) (test udym=041) 149 K/CU MM 150-450 MEAN PLATELET VOLUME (BEAKER) (test ooiw=810) 12.4 fL 9.4-12.3 NUCLEATED RED BLOOD CELLS (BEAKER) (test 0 /100 WBC 0-0 qdew=914) NEUTROPHILS RELATIVE PERCENT (BEAKER) (test 75 % bjsu=736) LYMPHOCYTES RELATIVE PERCENT (BEAKER) (test 15 % lfgi=768) MONOCYTES RELATIVE PERCENT (BEAKER) (test 6 % jdmm=324) EOSINOPHILS RELATIVE PERCENT (BEAKER) (test 3 % ifuv=350) BASOPHILS RELATIVE PERCENT (BEAKER) (test 0 % ivsw=291) NEUTROPHILS ABSOLUTE COUNT (BEAKER) (test 5.02 K/ L 1.56-6.13 wjzt=909) LYMPHOCYTES ABSOLUTE COUNT (BEAKER) (test 0.99 K/ L 1.18-3.74 ozpd=385) MONOCYTES ABSOLUTE COUNT (BEAKER) (test 0.39 K/ L 0.24-0.36 owwo=022) EOSINOPHILS ABSOLUTE COUNT (BEAKER) (test 0.23 K/ L 0.04-0.36 ecuh=951) BASOPHILS ABSOLUTE COUNT (BEAKER) (test 0.03 K/ L 0.01-0.08 igvu=775) IMMATURE GRANULOCYTES-RELATIVE PERCENT (BEAKER) 1 % 0-1 (test nugq=2423) [id number] 05:16:00 Test Item Value Reference Range Comments PHOSPHORUS (BEAKER) (test newu=228) 2.5 mg/dL 2.3-4.7 [id number] 05:16:00 Test Item Value Reference Range Comments MAGNESIUM (BEAKER) (test opfw=902) 1.7 mg/dL 1.6-2.6 BASIC METABOLIC [id number] 05:16:00 Test Item Value Reference Range Comments SODIUM (BEAKER) (test 136 meq/L 136-145 ihjx=227) POTASSIUM (BEAKER) (test 4.4 meq/L 3.5-5.1 tsec=805) CHLORIDE (BEAKER) (test 107 meq/L 98-107 jeeq=547) CO2 (BEAKER) (test 25 meq/L 22-29 pxsc=756) BLOOD UREA NITROGEN 7 mg/dL 7-21 (BEAKER) (test mxiy=412) CREATININE (BEAKER) (test 0.52 mg/dL 0.57-1.25 dslq=099) GLUCOSE RANDOM (BEAKER) 88 mg/dL 70-105 (test jtyx=884) CALCIUM (BEAKER) (test 9.1 mg/dL 8.4-10.2 rptx=436) EGFR (BEAKER) (test 126 mL/min/1.73 sq m ESTIMATED GFR IS NOT louw=3041) ACCURATE CREATININE CLEARANCE IN PREDICTING GLOMERULAR FILTRATION RATE. ESTIMATED GFR IS NOT APPLICABLE FOR DIALYSIS PATIENTS. HEPATIC FUNCTION [id number] 05:16:00 Test Item Value Reference Range Comments TOTAL PROTEIN (BEAKER) (test pxro=783) 5.1 gm/dL 6.0-8.3 ALBUMIN (BEAKER) (test sbvg=6328) 2.9 g/dL 3.5-5.0 BILIRUBIN TOTAL (BEAKER) (test emoj=792) 0.3 mg/dL 0.2-1.2 BILIRUBIN DIRECT (BEAKER) (test bkcd=988) 0.2 mg/dL 0.1-0.5 ALKALINE PHOSPHATASE (BEAKER) (test uqtz=777) 141 U/L 40-150 AST (SGOT) (BEAKER) (test ihyl=143) 44 U/L 5-34 ALT (SGPT) (BEAKER) (test zjnm=973) 42 U/L 6-55 CBC W/PLT COUNT & AUTO [id number] 04:49:00 Test Item Value Reference Range Comments WHITE BLOOD CELL COUNT (BEAKER) (test thur=234) 6.0 K/ L 3.5-10.5 RED BLOOD CELL COUNT (BEAKER) (test yhzr=839) 3.69 M/ L 3.93-5.22 HEMOGLOBIN (BEAKER) (test bgeu=992) 9.1 GM/DL 11.2-15.7 HEMATOCRIT (BEAKER) (test uykv=773) 31.4 % 34.1-44.9 MEAN CORPUSCULAR VOLUME (BEAKER) (test xkah=900) 85.1 fL 79.4-94.8 MEAN CORPUSCULAR HEMOGLOBIN (BEAKER) (test 24.7 pg 25.6-32.2 grbu=988) MEAN CORPUSCULAR HEMOGLOBIN CONC (BEAKER) (test 29.0 GM/DL 32.2-35.5 aqzp=450) RED CELL DISTRIBUTION WIDTH (BEAKER) (test 18.9 % 11.7-14.4 vtrw=932) PLATELET COUNT (BEAKER) (test zdps=458) 106 K/CU MM 150-450 MEAN PLATELET VOLUME (BEAKER) (test grtz=330) 10.8 fL 9.4-12.3 NUCLEATED RED BLOOD CELLS (BEAKER) (test 0 /100 WBC 0-0 vsug=264) NEUTROPHILS RELATIVE PERCENT (BEAKER) (test 71 % wnvj=645) LYMPHOCYTES RELATIVE PERCENT (BEAKER) (test 19 % wbqy=130) MONOCYTES RELATIVE PERCENT (BEAKER) (test 6 % sevm=915) EOSINOPHILS RELATIVE PERCENT (BEAKER) (test 3 % wuws=860) BASOPHILS RELATIVE PERCENT (BEAKER) (test 1 % mxgt=363) NEUTROPHILS ABSOLUTE COUNT (BEAKER) (test 4.23 K/ L 1.56-6.13 aeon=006) LYMPHOCYTES ABSOLUTE COUNT (BEAKER) (test 1.14 K/ L 1.18-3.74 injg=237) MONOCYTES ABSOLUTE COUNT (BEAKER) (test 0.33 K/ L 0.24-0.36 qeoe=603) EOSINOPHILS ABSOLUTE COUNT (BEAKER) (test 0.19 K/ L 0.04-0.36 lpbe=290) BASOPHILS ABSOLUTE COUNT (BEAKER) (test 0.04 K/ L 0.01-0.08 foyy=039) IMMATURE GRANULOCYTES-RELATIVE PERCENT (BEAKER) 0 % 0-1 (test ckvp=9790) [id number] 07:02:00 Test Item Value Reference Range Comments FERRITIN (BEAKER) (test nujf=955) 29 ng/mL 5-275 VITAMIN B12 AND [id number] 07:02:00 Test Item Value Reference Range Comments VITAMIN B12 (BEAKER) (test sfej=011) 347 pg/mL 213-816 FOLATE (BEAKER) (test vejw=929) 10.4 ng/mL >=7.0 TSH/FREE T4 IF [id number] 06:08:00 Test Item Value Reference Range Comments THYROID STIMULATING HORMONE (BEAKER) (test 2.66 uIU/mL 0.35-4.94 qbzd=880) IRON, TIBC, % SAT. (WITHOUT FERRITIN)[id number] 05:45:00 Test Item Value Reference Range Comments IRON (BEAKER) (test bdqz=623) 19.0 ug/dL 40.0-160.0 TOTAL IRON BINDING CAPACITY (BEAKER) (test 324 ug/dL 250-450 tfsd=756) IRON % SATURATION (2) (BEAKER) (test suka=9514) 6 % 20-55 [id number] 05:36:00 Test Item Value Reference Range Comments PHOSPHORUS (BEAKER) (test cbuz=715) 2.2 mg/dL 2.3-4.7 [id number] 05:36:00 Test Item Value Reference Range Comments MAGNESIUM (BEAKER) (test tuqz=304) 2.1 mg/dL 1.6-2.6 BASIC METABOLIC [id number] 05:36:00 Test Item Value Reference Range Comments SODIUM (BEAKER) (test 136 meq/L 136-145 jlsb=534) POTASSIUM (BEAKER) (test 3.3 meq/L 3.5-5.1 srig=858) CHLORIDE (BEAKER) (test 108 meq/L 98-107 svqu=713) CO2 (BEAKER) (test 25 meq/L 22-29 lgzq=437) BLOOD UREA NITROGEN 7 mg/dL 7-21 (BEAKER) (test gkxq=060) CREATININE (BEAKER) (test 0.53 mg/dL 0.57-1.25 upqq=210) GLUCOSE RANDOM (BEAKER) 100 mg/dL 70-105 (test alfl=429) CALCIUM (BEAKER) (test 8.2 mg/dL 8.4-10.2 etsd=231) EGFR (BEAKER) (test 124 mL/min/1.73 sq m ESTIMATED GFR IS NOT kowl=7403) ACCURATE CREATININE CLEARANCE IN PREDICTING GLOMERULAR FILTRATION RATE. ESTIMATED GFR IS NOT APPLICABLE FOR DIALYSIS PATIENTS. LIPID [id number] 05:36:00 Test Item Value Reference Range Comments TRIGLYCERIDES (BEAKER) (test gcyy=203) 73 mg/dL CHOLESTEROL (BEAKER) (test uhac=625) 84 mg/dL HDL CHOLESTEROL (BEAKER) (test hxiv=412) 31 mg/dL LDL CHOLESTEROL CALCULATED (BEAKER) (test olgx=861) 38 mg/dL Triglyceride Reference Range: Low Risk <150 Borderline 150- 199 High Risk 200-499 Very High Risk >=500Cholesterol Reference Range: Low Risk <200 Borderline 200-239 High Risk > 240HDL Cholesterol Reference Range: Low Risk >=60 High Risk <40LDL Cholesterol Reference Range: Optimal <100 Near Optimal 100-129 Borderline 130-159 High 160-189 Very High >=190HEPATIC FUNCTION [id number] 05:36:00 Test Item Value Reference Range Comments TOTAL PROTEIN (BEAKER) (test ymgp=033) 4.6 gm/dL 6.0-8.3 ALBUMIN (BEAKER) (test pnil=8968) 2.7 g/dL 3.5-5.0 BILIRUBIN TOTAL (BEAKER) (test sdxz=356) 0.3 mg/dL 0.2-1.2 BILIRUBIN DIRECT (BEAKER) (test tlcz=469) 0.1 mg/dL 0.1-0.5 ALKALINE PHOSPHATASE (BEAKER) (test nbtd=525) 141 U/L 40-150 AST (SGOT) (BEAKER) (test ppbi=070) 100 U/L 5-34 ALT (SGPT) (BEAKER) (test ywvt=170) 51 U/L 6-55 CBC W/PLT COUNT & AUTO [id number] 05:17:00 Test Item Value Reference Range Comments WHITE BLOOD CELL COUNT (BEAKER) (test xmfk=563) 5.0 K/ L 3.5-10.5 RED BLOOD CELL COUNT (BEAKER) (test kqqo=812) 3.37 M/ L 3.93-5.22 HEMOGLOBIN (BEAKER) (test cczu=492) 8.4 GM/DL 11.2-15.7 HEMATOCRIT (BEAKER) (test jykt=930) 28.9 % 34.1-44.9 MEAN CORPUSCULAR VOLUME (BEAKER) (test keas=153) 85.8 fL 79.4-94.8 MEAN CORPUSCULAR HEMOGLOBIN (BEAKER) (test 24.9 pg 25.6-32.2 qhyc=463) MEAN CORPUSCULAR HEMOGLOBIN CONC (BEAKER) (test 29.1 GM/DL 32.2-35.5 gbat=085) RED CELL DISTRIBUTION WIDTH (BEAKER) (test 19.0 % 11.7-14.4 qjav=968) PLATELET COUNT (BEAKER) (test xuld=125) 109 K/CU MM 150-450 MEAN PLATELET VOLUME (BEAKER) (test eilw=265) 12.2 fL 9.4-12.3 NUCLEATED RED BLOOD CELLS (BEAKER) (test 0 /100 WBC 0-0 illk=873) NEUTROPHILS RELATIVE PERCENT (BEAKER) (test 67 % zrro=802) LYMPHOCYTES RELATIVE PERCENT (BEAKER) (test 21 % zpqp=686) MONOCYTES RELATIVE PERCENT (BEAKER) (test 9 % gvyt=522) EOSINOPHILS RELATIVE PERCENT (BEAKER) (test 3 % kxns=752) BASOPHILS RELATIVE PERCENT (BEAKER) (test 0 % ptvu=661) NEUTROPHILS ABSOLUTE COUNT (BEAKER) (test 3.32 K/ L 1.56-6.13 maxs=359) LYMPHOCYTES ABSOLUTE COUNT (BEAKER) (test 1.03 K/ L 1.18-3.74 bvbl=713) MONOCYTES ABSOLUTE COUNT (BEAKER) (test 0.44 K/ L 0.24-0.36 niyx=206) EOSINOPHILS ABSOLUTE COUNT (BEAKER) (test 0.15 K/ L 0.04-0.36 mqrh=887) BASOPHILS ABSOLUTE COUNT (BEAKER) (test 0.02 K/ L 0.01-0.08 jvfc=239) IMMATURE GRANULOCYTES-RELATIVE PERCENT (BEAKER) 0 % 0-1 (test hxhq=8401) SCREEN, [id number] 22:07:00 Test Item Value Reference Range Comments TEST URINE (BEAKER) (test mony=348) Negative [id number] 16:18:00 Test Item Value Reference Range Comments PROTIME (BEAKER) (test dhbj=653) 13.5 seconds 11.9-14.2 INR (BEAKER) (test dqoe=012) 1.1 <=5.9 PARTIAL THROMBOPLASTIN TIME (BEAKER) (test 27.7 seconds 22.5-36.0 etnt=581) Effective 02/23/2019: PT Reference Range ChangeNew: 11.9-14.2 Previous: 11.7- 14.7RECOMMENDED COUMADIN/WARFARIN INR THERAPY RANGESSTANDARD DOSE: 2.0-3.0 Includes: PROPHYLAXIS for venous thrombosis, systemic embolization; TREATMENT for venous thrombosis and/or pulmonary embolus.HIGH RISK: Target INR is2.5-3.5 for patients wiht mechanical heart valves.[id number] 16:12:00 Test Item Value Reference Range Comments MAGNESIUM (BEAKER) (test afip=111) 1.4 mg/dL 1.6-2.6 COMPREHENSIVE METABOLIC [id number] 16:12:00 Test Item Value Reference Range Comments TOTAL PROTEIN (BEAKER) 5.2 gm/dL 6.0-8.3 (test tqtl=151) ALBUMIN (BEAKER) (test 3.0 g/dL 3.5-5.0 ofen=2806) ALKALINE PHOSPHATASE 151 U/L 40-150 (BEAKER) (test vlnv=480) BILIRUBIN TOTAL (BEAKER) 0.3 mg/dL 0.2-1.2 (test csic=249) SODIUM (BEAKER) (test 140 meq/L 136-145 wkuc=106) POTASSIUM (BEAKER) (test 3.1 meq/L 3.5-5.1 akfz=405) CHLORIDE (BEAKER) (test 105 meq/L 98-107 ytak=960) CO2 (BEAKER) (test 27 meq/L 22-29 onro=522) BLOOD UREA NITROGEN 7 mg/dL 7-21 (BEAKER) (test vbre=066) CREATININE (BEAKER) (test 0.52 mg/dL 0.57-1.25 koqu=170) GLUCOSE RANDOM (BEAKER) 82 mg/dL 70-105 (test cnqp=327) CALCIUM (BEAKER) (test 8.6 mg/dL 8.4-10.2 radh=353) AST (SGOT) (BEAKER) (test 40 U/L 5-34 hnoy=169) ALT (SGPT) (BEAKER) (test 34 U/L 6-55 vook=055) EGFR (BEAKER) (test 126 mL/min/1.73 sq ESTIMATED GFR IS NOT vltx=4625) m ACCURATE CREATININE CLEARANCE IN PREDICTING GLOMERULAR FILTRATION RATE. ESTIMATED GFR IS NOT APPLICABLE FOR DIALYSIS PATIENTS. [id number] 16:12:00 Test Item Value Reference Range Comments LIPASE (BEAKER) (test fuie=720) 452 U/L 8-78 CBC W/PLT COUNT & AUTO [id number] 15:57:00 Test Item Value Reference Range Comments WHITE BLOOD CELL COUNT (BEAKER) (test qwfl=496) 7.4 K/ L 3.5-10.5 RED BLOOD CELL COUNT (BEAKER) (test scrq=221) 3.66 M/ L 3.93-5.22 HEMOGLOBIN (BEAKER) (test efdx=165) 9.2 GM/DL 11.2-15.7 HEMATOCRIT (BEAKER) (test sjbg=021) 30.6 % 34.1-44.9 MEAN CORPUSCULAR VOLUME (BEAKER) (test lmyy=013) 83.6 fL 79.4-94.8 MEAN CORPUSCULAR HEMOGLOBIN (BEAKER) (test 25.1 pg 25.6-32.2 ugac=903) MEAN CORPUSCULAR HEMOGLOBIN CONC (BEAKER) (test 30.1 GM/DL 32.2-35.5 lqby=494) RED CELL DISTRIBUTION WIDTH (BEAKER) (test 18.6 % 11.7-14.4 yrhl=189) PLATELET COUNT (BEAKER) (test bebc=628) 111 K/CU MM 150-450 MEAN PLATELET VOLUME (BEAKER) (test zfgr=923) 10.5 fL 9.4-12.3 NUCLEATED RED BLOOD CELLS (BEAKER) (test 0 /100 WBC 0-0 pobv=627) NEUTROPHILS RELATIVE PERCENT (BEAKER) (test 77 % bywl=380) LYMPHOCYTES RELATIVE PERCENT (BEAKER) (test 15 % dyip=009) MONOCYTES RELATIVE PERCENT (BEAKER) (test 6 % zgva=577) EOSINOPHILS RELATIVE PERCENT (BEAKER) (test 2 % xopp=170) BASOPHILS RELATIVE PERCENT (BEAKER) (test 0 % ahyd=509) NEUTROPHILS ABSOLUTE COUNT (BEAKER) (test 5.67 K/ L 1.56-6.13 mmef=049) LYMPHOCYTES ABSOLUTE COUNT (BEAKER) (test 1.09 K/ L 1.18-3.74 fqop=213) MONOCYTES ABSOLUTE COUNT (BEAKER) (test 0.44 K/ L 0.24-0.36 xkyw=185) EOSINOPHILS ABSOLUTE COUNT (BEAKER) (test 0.14 K/ L 0.04-0.36 rgvn=880) BASOPHILS ABSOLUTE COUNT (BEAKER) (test 0.02 K/ L 0.01-0.08 dsqa=960) IMMATURE GRANULOCYTES-RELATIVE PERCENT (BEAKER) 0 % 0-1 (test fgyc=8433)
[2019-09-15 00:46] LABS: Absolute Lymphocytes (CBC) 0.6 K/uL (0.7-4.9); Basophils % 0.5 % (0-1.3); Hematocrit 42.8 % (36.0-45.0); Lymphocytes % 6.3 % (15.3-44.8); MPV 10.2 fL (7.6-11.3); RBC Red Blood Cell Count 5.19 M/uL (3.86-4.86)
[2019-09-15] MEDS ORDERED: NA CHLORIDE 0.9% 1,000 ML ONE (00:52)
[2019-09-15] MEDS ORDERED: ONDANSETRON 4 MG/2 ML VIAL ONE ×2 (00:52→02:24)
[2019-09-15 00:58] LABS: ALT/SGPT 19 U/L (12-78); AST/SGOT 12 U/L (15-37); Albumin 4.2 g/dL (3.4-5.0); Alkaline Phosphatase 103 U/L (45-117); BUN Blood Urea Nitrogen 25 mg/dL (7-18); Bicarbonate 25 mmol/L (21-32); Bilirubin Direct 0.1 mg/dL (0-0.2); Bilirubin Total 0.4 mg/dL (0.2-1.0); Glucose Level 122 mg/dL (74-106); Lipase 37 U/L (73-393); Potassium 3.6 mmol/L (3.5-5.1); Protein, Total 8.1 g/dL (6.4-8.2); Sodium Level 134 mmol/L (136-145)
[2019-09-15 01:11] LABS: Blood Morphology Comment NOT SEEN (NOT SEEN); Platelet Estimate ADEQ; Urine White Blood Cell Casts OK
[2019-09-15] MEDS ORDERED: PROMETHAZINE 25 MG/ML VIAL ONE ×2 (02:43→05:36)
[2019-09-15] MEDS ORDERED: DICYCLOMINE HCL 20 MG/2 ML AMP IM ONE (02:44)
--- NOTE | 2019-09-15 06:26 | EDPHYS ---
Physician Documentation [facility] Name: Sohan Givens Age: 49 yrs Sex: Female : 1970 Arrival Date: 09/15/2019 Time: 00:04 Bed 16 Private MD: ED Physician Cornelius Serrato HPI: 09/15 03:30 This 49 yrs old Female presents to ER via Wheelchair with complaints of tw4 Vomiting. 03:30 The patient presents to the emergency department with nausea, vomiting, 5 times since tw4 the onset of symptoms. Onset: The symptoms/episode began/occurred 2 day(s) ago. Possible causes: unknown. The symptoms are aggravated by nothing. The symptoms are alleviated by nothing. Associated signs and symptoms: The patient has no apparent associated signs or symptoms. The patient has not experienced similar symptoms in the past. Historical: - Allergies: 00:07 Demerol; jb4 - Home Meds: 00:07 gabapentin 300 mg Oral cap 1 cap 3 times per day [Active]; levothyroxine oral [Active]; jb4 Metoprolol Tartrate Oral [Active]; Hydrocodone-Acetaminophen Oral [Active]; Zyrtec Oral [Active]; - PMHx: 00:07 Anxiety; Hypertension; bone cancer; Hypothyroidism; osteoarthritis; Osteoporosis; jb4 Vitamin B, Ca, K, D deficiency; Pancreatitis; Anemia; - PSHx: 00:07 left leg amputation; Cholecystectomy; jb4 - Immunization history:: Adult Immunizations up to date. - Social history:: Smoking status: Patient uses tobacco products, smokes one pack cigarettes per day. Patient uses alcohol, occasionally. street drugs, marijuana. - Ebola Screening: : No symptoms or risks identified at this time. ROS: 03:30 Constitutional: Negative for fever, chills, and weight loss. tw4 03:30 Eyes: Negative for injury, pain, redness, and discharge, ENT: Negative for injury, pain, and discharge, Cardiovascular: Negative for chest pain, palpitations, and edema, Respiratory: Negative for shortness of breath, cough, wheezing, and pleuritic chest pain, Back: Negative for injury and pain, MS/Extremity: Negative for injury and deformity, Skin: Negative for injury, rash, and discoloration, Neuro: Negative for headache, weakness, numbness, tingling, and seizure. 06:28 Abdomen/GI: Positive for abdominal pain, nausea and vomiting, nausea, vomiting, tw4 constipation, Negative for diarrhea, anorexia, dysphagia, hematemesis, black/tarry stool, rectal pain, bowel incontinence. Exam: 03:30 Constitutional: This is a well developed, well nourished patient who is awake, alert, tw4 and in no acute distress. Head/Face: Normocephalic, atraumatic. 03:30 Eyes: Pupils equal round and reactive to light, extra-ocular motions intact. Lids and lashes normal. Conjunctiva and sclera are non-icteric and not injected. Cornea within normal limits. Periorbital areas with no swelling, redness, or edema. Chest/axilla: Normal chest wall appearance and motion. Nontender with no deformity. No lesions are appreciated. Cardiovascular: Regular rate and rhythm with a normal S1 and S2. No gallops, murmurs, or rubs. Normal PMI, no JVD. No pulse deficits. Respiratory: Lungs have equal breath sounds bilaterally, clear to auscultation and percussion. No rales, rhonchi or wheezes noted. No increased work of breathing, no retractions or nasal flaring. Back: No spinal tenderness. No costovertebral tenderness. Full range of motion. Skin: Warm, dry with normal turgor. Normal color with no rashes, no lesions, and no evidence of cellulitis. MS/ Extremity: Pulses equal, no cyanosis. Neurovascular intact. Full, normal range of motion. Neuro: Awake and alert, GCS 15, oriented to person, place, time, and situation. Cranial nerves II-XII grossly intact. Motor strength 5/5 in all extremities. Sensory grossly intact. Cerebellar exam normal. Normal gait. 03:30 Abdomen/GI: Inspection: abdomen appears normal, Bowel sounds: diminished, Palpation: moderate abdominal tenderness, in the epigastric area. Vital Signs: 00:07 BP 144 / 70; Pulse 81; Resp 16; Temp 99.1(O); Pulse Ox 100% on R/A; Weight 44.45 kg jb4 (R); Height 5 ft. 3 in. (160.02 cm); Pain 8/10; 01:15 BP 135 / 74; Pulse 89; Resp 16; Pulse Ox 98% on R/A; jb4 02:00 BP 137 / 64; Pulse 92; Resp 16; Pulse Ox 97% on R/A; jb4 03:15 BP 149 / 78; Pulse 83; Resp 16; Pulse Ox 97% on R/A; jb4 04:45 BP 136 / 65; Pulse 87; Resp 16; Pulse Ox 97% on R/A; jb4 05:45 BP 151 / 61; Pulse 83; Resp 20; Pulse Ox 97% on R/A; jb4 06:15 BP 146 / 80; Pulse 83; Resp 20; Temp 99.5(A); Pulse Ox 97% on R/A; jb4 00:07 Body Mass Index 17.36 (44.45 kg, 160.02 cm) jb4 MDM: 00:19 Patient medically screened. tw4 03:30 Differential diagnosis: Nonspecific abd pain, gastritis, cholecystitis, pancreatitis, tw4 appendicitis, diverticulitis, viral gastroenteritis. Data reviewed: vital signs, nurses notes. Data reviewed: lab test result(s), CBC, white blood cell count, hemoglobin, hematocrit, platelets, electrolytes, sodium, potassium, chloride, serum bicarbonate, BUN, creatinine, serum glucose, hepatic panel. Counseling: I had a detailed discussion with the patient and/or guardian regarding: the historical points, exam findings, and any diagnostic results supporting the discharge/admit diagnosis, lab results. Medication response: Phenergan relieved the patient's nausea, Zofran partially relieved the patient's nausea. 06:29 Data interpreted: Pulse oximetry: Interpretation: normal. Response to treatment: the tw4 patient's symptoms have markedly improved after treatment, PT TOLERATED PO FLUIDS, and as a result, I will discharge patient. Special discussion: Based on the patient's Hx, exam, and Dx evaluation, there is no indication for emergent surgery or inpatient Tx. It is understood by the patient/guardian that if the Sx's persist or worsen they need to return immediately for re-evaluation. I discussed with the patient/guardian in detail that at this point there is no indication for admission to the hospital. It is understood, however, that if the symptoms persist or worsen the patient needs to return immediately for re-evaluation. 09/15 00:18 Order name: Basic Metabolic Panel; Complete Time: 02:18 tw4 09/15 02:18 Interpretation: Normal except: NA 134; BUN 25; GLUC 122. tw4 09/15 00:18 Order name: CBC with Diff; Complete Time: 02:18 4 09/15 02:19 Interpretation: Normal except: RBC 5.19; RDW 16.5; LYM% 6.3; JEANNE% 87.7; LYMA 0.6. 4 09/15 00:18 Order name: Creatinine for Radiology; Complete Time: 02:18 4 09/15 02:21 Interpretation: Within normal limits: CRE 0.66. 4 09/15 00:18 Order name: Hepatic Function; Complete Time: 02:18 tw4 09/15 02:20 Interpretation: Normal except: AST 12; GLOB 3.9. tw4 09/15 00:18 Order name: Lipase; Complete Time: 02:18 [facility] 09/15 02:21 Interpretation: Within normal limits: LIP 37. [facility] 09/15 01:11 Order name: CBC Smear Scan; Complete Time: 02:18 [facility] 09/15 02:21 Interpretation: Within normal limits: RBC ABNOR MORPH NOT SEEN. [facility] 09/15 00:18 Order name: IV Saline Lock; Complete Time: 00:49 4 09/15 03:02 Order name: CT Abd/Pelvis - IV Contrast Only ak1 09/15 00:18 Order name: Labs collected and sent; Complete Time: 00:49 [facility] 09/15 06:12 Order name: PO challenge; Complete Time: 06:12 jb4 Administered Medications: 00:52 Drug: NS 0.9% 1000 ml Route: IV; Rate: 1 bolus; Site: left forearm; jb4 02:00 Follow up: Response: No adverse reaction; IV Status: Completed infusion; IV Intake: jb4 1000ml 00:52 Drug: Zofran 4 mg Route: IVP; Site: left forearm; jb4 01:20 Follow up: Response: No adverse reaction; Nausea is decreased; Vomiting decreased jb4 02:25 Drug: Zofran 4 mg Route: IVP; Site: left forearm; jb4 02:40 Follow up: Response: No adverse reaction; Nausea unchanged jb4 02:50 Drug: Phenergan 25 mg Route: IVP; Site: left forearm; jb4 03:20 Follow up: Response: No adverse reaction; Nausea is decreased jb4 03:29 Not Given (Patient Refused): Bentyl 20 mg IM once jb4 05:45 Drug: Phenergan 25 mg Route: IVP; Site: left forearm; jb4 06:12 Follow up: Response: No adverse reaction; Nausea is decreased jb4 Disposition: 09/15/19 06:25 Discharged to Home. Impression: Other viral enteritis, Dehydration, Vomiting, unspecified, Gastritis, unspecified. - Condition is Stable. - Discharge Instructions: Food Choices to Help Relieve Diarrhea, Adult, Dehydration, Adult, Diarrhea, Adult, Nausea and Vomiting, Adult, Constipation, Adult, [id number], Nausea and Vomiting, Adult, [id number]. - Prescriptions for Zofran 4 mg Oral Tablet - take 1 tablet by ORAL route every 12 hours As needed; 6 tablet. Phenergan 25 mg Rectal Suppository - insert 1 suppository by RECTAL route every 6 hours As needed; 12 suppository. promethazine 25 mg Oral Tablet - take 1 tablet by ORAL route every 6 hours As needed; 20 tablet. Miralax 17 gram/dose Oral - take 1 packet by ORAL route once daily dilute powder in 8 ounces of water or juice; 1 packet. - Medication Reconciliation Form, Thank You Letter, Antibiotic Education, Prescription Opioid Use form. - Follow up: Private Physician; When: Upon discharge from the Emergency Department; Reason: Recheck today's complaints, Continuance of care. - Problem is new. - Symptoms have improved. Signatures: Dispatcher [employer] EDMS Best Lubin RN RN jb4 Cornelius Serrato MD MD tw4 Corrections: (The following items were deleted from the chart) 06:27 06:25 09/15/2019 06:25 Discharged to Home. Impression: Other viral enteritis; tw4 Dehydration; Vomiting, unspecified; Diarrhea, unspecified. Condition is Stable. Forms are Medication Reconciliation Form, Thank You Letter, Antibiotic Education, Prescription Opioid Use. Follow up: Private Physician; When: Upon discharge from the Emergency Department; Reason: Recheck today's complaints, Continuance of care. Problem is new. Symptoms have improved. tw4 06:29 03:30 Abdomen/GI: Positive for abdominal pain, nausea and vomiting, nausea, vomiting, tw4 and diarrhea, nausea, vomiting, abdominal cramps, Negative for black/tarry stool, rectal pain, rectal bleeding, bowel incontinence, flatulence, tw4 06:38 06:27 09/15/2019 06:25 Discharged to Home. Impression: Other viral enteritis; jb4 Dehydration; Vomiting, unspecified; Gastritis, unspecified. Condition is Stable. Discharge Instructions: Food Choices to Help Relieve Diarrhea, Adult, Dehydration, Adult, Diarrhea, Adult, Nausea and Vomiting, Adult, Constipation, Adult, [id number], Nausea and Vomiting, Adult, [id number]. Prescriptions for Zofran 4 mg Oral Tablet - take 1 tablet by ORAL route every 12 hours As needed; 6 tablet, Phenergan 25 mg Rectal Suppository - insert 1 suppository by RECTAL route every 6 hours As needed; 12 suppository, promethazine 25 mg Oral Tablet - take 1 tablet by ORAL route every 6 hours As needed; 20 tablet, Miralax 17 gram/dose Oral - take 1 packet by ORAL route once daily dilute powder in 8 ounces of water or juice; 1 packet. and Forms are Medication Reconciliation Form, Thank You Letter, Antibiotic Education, Prescription Opioid Use. Follow up: Private Physician; When: Upon discharge from the Emergency Department; Reason: Recheck today's complaints, Continuance of care. Problem is new. Symptoms have improved. tw4
--- NOTE | 2019-09-15 06:26 | ER ---
Nurse's Notes [facility] Name: Sohan Givens Age: 49 yrs Sex: Female : 1970 Arrival Date: 09/15/2019 Time: 00:04 Bed 16 Private MD: Diagnosis: Other viral enteritis;Dehydration;Vomiting, unspecified;Gastritis, unspecified Presentation: 09/15 00:07 Presenting complaint: states: She started with cough and Congestion about 2 jb4 days ago that turned into nausea and vomiting. Over the last 24hrs it has gotten much worse. We are primarily concerned about her having a flair up of pancreatitis. 00:07 Transition of care: patient was not received from another setting of care. Onset of jb4 symptoms was September 13, 2019. Risk Assessment: Do you want to hurt yourself or someone else? Patient reports no desire to harm self or others. Initial Sepsis Screen: Does the patient meet any 2 criteria? No. Patient's initial sepsis screen is negative. Does the patient have a suspected source of infection? No. Patient's initial sepsis screen is negative. Care prior to arrival: None. 00:07 Method Of Arrival: Wheelchair jb4 00:07 Acuity: MATTEO 3 jb4 Historical: - Allergies: 00:07 Demerol; jb4 - Home Meds: 00:07 gabapentin 300 mg Oral cap 1 cap 3 times per day [Active]; levothyroxine oral [Active]; jb4 Metoprolol Tartrate Oral [Active]; Hydrocodone-Acetaminophen Oral [Active]; Zyrtec Oral [Active]; - PMHx: 00:07 Anxiety; Hypertension; bone cancer; Hypothyroidism; osteoarthritis; Osteoporosis; jb4 Vitamin B, Ca, K, D deficiency; Pancreatitis; Anemia; - PSHx: 00:07 left leg amputation; Cholecystectomy; jb4 - Immunization history:: Adult Immunizations up to date. - Social history:: Smoking status: Patient uses tobacco products, smokes one pack cigarettes per day. Patient uses alcohol, occasionally. street drugs, marijuana. - Ebola Screening: : No symptoms or risks identified at this time. Screenin:07 Abuse screen: Denies threats or abuse. Nutritional screening: No deficits noted. jb4 Tuberculosis screening: No symptoms or risk factors identified. Fall Risk Gait- Impaired (20 pts.). Total Hartmann Fall Scale indicates No Risk (0-24 pts). Assessment: 00:07 General: Appears in no apparent distress. uncomfortable, Behavior is calm, cooperative, jb4 appropriate for age. Pain: Complains of pain in abdomen Pain does not radiate. Pain currently is 8 out of 10 on a pain scale. Neuro: Level of Consciousness is awake, alert, obeys commands, Oriented to person, place, time, situation. Cardiovascular: Patient's skin is warm and dry. Respiratory: Airway is patent Respiratory effort is even, unlabored, Respiratory pattern is regular, symmetrical. GI: Abdomen is flat, non-distended, Bowel sounds present X 4 quads. Abd is soft X 4 quads Abdomen is tender to palpation X 4 quads. Reports lower abdominal pain, upper abdominal pain, constipation, nausea, vomiting. : No signs and/or symptoms were reported regarding the genitourinary system. EENT: No signs and/or symptoms were reported regarding the EENT system. Derm: Skin is intact, Skin is pink, warm \T\ dry. Musculoskeletal: No signs and/or symptoms reported regarding the musculoskeletal system. 01:15 Reassessment: Patient appears in no apparent distress at this time. Patient and/or jb4 family updated on plan of care and expected duration. Pain level reassessed. PT is resting in bed with eyes closed respirations are even and unlabored. No s/s of distress or pain noted. Patient states feeling better. Patient states symptoms have improved. 02:05 Reassessment: Patient appears in no apparent distress at this time. No changes from jb4 previously documented assessment. Patient and/or family updated on plan of care and expected duration. Pain level reassessed. 03:27 Reassessment: Patient appears in no apparent distress at this time. Patient and/or jb4 family updated on plan of care and expected duration. Pain level reassessed. Patient is alert, oriented x 3, equal unlabored respirations, skin warm/dry/pink. Patient states feeling better. 04:44 Reassessment: Patient appears in no apparent distress at this time. Patient and/or jb4 family updated on plan of care and expected duration. Pain level reassessed. Patient is alert, oriented x 3, equal unlabored respirations, skin warm/dry/pink. Patient states feeling better. Patient states symptoms have improved. 05:35 Reassessment: Patient appears in no apparent distress at this time. Patient and/or jb4 family updated on plan of care and expected duration. Pain level reassessed. Patient is alert, oriented x 3, equal unlabored respirations, skin warm/dry/pink. PT vomiting, Provider notified. See MAR for orders. 06:15 Reassessment: Patient appears in no apparent distress at this time. Patient and/or jb4 family updated on plan of care and expected duration. Pain level reassessed. Patient is alert, oriented x 3, equal unlabored respirations, skin warm/dry/pink. PT completed PO challenge. Reports feeling nausea but has not vomited. 06:30 Reassessment: Patient appears in no apparent distress at this time. Patient and/or jb4 family updated on plan of care and expected duration. Pain level reassessed. Patient is alert, oriented x 3, equal unlabored respirations, skin warm/dry/pink. PT continues to verbalized feeling nauseated but has not vomited since being po'ed challenged. Pt and verbalized understanding of d/c and follow up instructions. questions and concerns were addressed. Pt assisted to vehicle via wheelchair. Vital Signs: 00:07 BP 144 / 70; Pulse 81; Resp 16; Temp 99.1(O); Pulse Ox 100% on R/A; Weight 44.45 kg 4 (R); Height 5 ft. 3 in. (160.02 cm); Pain 8/10; 01:15 BP 135 / 74; Pulse 89; Resp 16; Pulse Ox 98% on R/A; jb4 02:00 BP 137 / 64; Pulse 92; Resp 16; Pulse Ox 97% on R/A; jb4 03:15 BP 149 / 78; Pulse 83; Resp 16; Pulse Ox 97% on R/A; jb4 04:45 BP 136 / 65; Pulse 87; Resp 16; Pulse Ox 97% on R/A; jb4 05:45 BP 151 / 61; Pulse 83; Resp 20; Pulse Ox 97% on R/A; jb4 06:15 BP 146 / 80; Pulse 83; Resp 20; Temp 99.5(A); Pulse Ox 97% on R/A; jb4 00:07 Body Mass Index 17.36 (44.45 kg, 160.02 cm) [facility] ED Course: 00:04 Patient arrived in ED. ag3 00:07 Arm band placed on right wrist. jb4 00:07 Patient has correct armband on for positive identification. Bed in low position. Call jb4 light in reach. Side rails up X 1. Pulse ox on. NIBP on. 00:17 Cornelius Serrato MD is Attending Physician. tw4 00:19 Best Lubin, RN is Primary Nurse. jb4 00:21 Triage completed. jb4 00:30 Initial lab(s) drawn, by me, sent to lab. Missed attempt(s): 18 gauge in left forearm. jb4 Bleeding controlled, band aid applied, catheter tip intact. 00:44 Inserted saline lock: 20 gauge in left forearm, using aseptic technique. jb4 03:49 CT completed. Patient tolerated procedure well. Patient moved to CT via stretcher. Patient moved back from CT. 03:55 CT Abd/Pelvis - IV Contrast Only In Process Unspecified. EDMS 06:30 No provider procedures requiring assistance completed. IV discontinued, intact, jb4 bleeding controlled, No redness/swelling at site. Pressure dressing applied. Administered Medications: 00:52 Drug: NS 0.9% 1000 ml Route: IV; Rate: 1 bolus; Site: left forearm; jb4 02:00 Follow up: Response: No adverse reaction; IV Status: Completed infusion; IV Intake: jb4 1000ml 00:52 Drug: Zofran 4 mg Route: IVP; Site: left forearm; jb4 01:20 Follow up: Response: No adverse reaction; Nausea is decreased; Vomiting decreased jb4 02:25 Drug: Zofran 4 mg Route: IVP; Site: left forearm; jb4 02:40 Follow up: Response: No adverse reaction; Nausea unchanged jb4 02:50 Drug: Phenergan 25 mg Route: IVP; Site: left forearm; jb4 03:20 Follow up: Response: No adverse reaction; Nausea is decreased jb4 03:29 Not Given (Patient Refused): Bentyl 20 mg IM once jb4 05:45 Drug: Phenergan 25 mg Route: IVP; Site: left forearm; jb4 06:12 Follow up: Response: No adverse reaction; Nausea is decreased jb4 Intake: 02:00 IV: 1000ml; Total: 1000ml. jb4 Outcome: 06:25 Discharge ordered by . tw4 06:30 Discharged to home via wheelchair. jb4 06:30 Condition: stable 06:30 Discharge instructions given to patient, significant other, Instructed on discharge instructions, follow up and referral plans. medication usage, Demonstrated understanding of instructions, follow-up care, medications, Prescriptions given X 4. 06:38 Patient left the ED. jb4 Signatures: Dispatcher [employer] EDMS Winston Le James RN RN jb4 Cornelius Serrato MD MD tw4 Sylvia Cantu ag3 Corrections: (The following items were deleted from the chart) 04:47 00:07 GI: Abdomen is flat, non-distended, jb4 jb4 06:50 06:46 Reassessment: Patient appears in no apparent distress at this time. Patient jb4 and/or family updated on plan of care and expected duration. Pain level reassessed. Patient is alert, oriented x 3, equal unlabored respirations, skin warm/dry/pink. PT continues to verbalized feeling nauseated but has not vomited since being po'ed challenged. Pt and verbalized understanding of d/c and follow up instructions. questions and concerns were addressed. Pt assisted to vehicle via wheelchair. jb4 06:51 00:07 GI: Abdomen is flat, non-distended, Bowel sounds present X 4 quads. Abd is soft X jb4 4 quads Abdomen is tender to palpation X 4 quads. jb4
[2019-09-15 07:05] VITALS: O2SAT 97
[2019-09-15 07:16] VITALS: BP 146/80; TEMP 99.5
--- NOTE | 2019-09-15 10:25 | RAD REPORT ---
EXAM DESCRIPTION: CT - Abdomen Pelvis W Contrast - 09/15/2019 4:28 am CLINICAL HISTORY: The patient is 49 years old and is Female; ABD PAIN TECHNIQUE: Axial computed tomography images of the abdomen and pelvis with intravenous contrast. S agittal and coronal reformatted images were created and reviewed. This CT exam was performed using one or more of the following dose reduction techniques: automated exposure control, adjustment of t he mA and/or kV according to patient size, and/or use of iterative reconstruction technique. COMPARISON: CT abdomen and pelvis July 01, 2019. FINDINGS: LUNG BASES: Minimal dependent densities in the lung bases are present. ABDOMEN: LIVER: Unremarkable. No mass. GALLBLADDER AND BILE DUCTS: Surgical clips are present in the right upper quadrant, consistent w ith previous cholecystectomy. PANCREAS: No ductal dilation. No mass. SPLEEN: Unremarkable. ADRENALS: Unremarkable. No mass. KIDNEYS AND URETERS: Unremarkable. The kidneys enhance symmetrically. No obstructing renal or ur eteral calculus is seen. No hydronephrosis or hydroureter. No perinephric fluid or stranding. STOMACH AND BOWEL: The stomach is fluid-filled. The small bowel is decompressed. Stool is presen t throughout colon. No evidence of bowel obstruction. No significant bowel wall thickening. Colonic d iverticulosis is noted, without associated inflammatory changes to suggest diverticulitis. PELVIS: APPENDIX: The appendix is normal in caliber without surrounding inflammation. BLADDER: Unremarkable. No mass. REPRODUCTIVE: The patient is status post hysterectomy. ABDOMEN and PELVIS: INTRAPERITONEAL SPACE: Unremarkable. No free air. No significant fluid collection. BONES/JOINTS: No acute fracture. Chronic compression deformity of the superior endplate of T12 i s present. SOFT TISSUES: Bilateral breast implants are partially visualized. VASCULATURE: Unremarkable. No abdominal aortic aneurysm. LYMPH NODES: Unremarkable. No enlarged lymph nodes. IMPRESSION: Colonic diverticulosis without evidence of diverticulitis. Electronically signed by: Ellyn Ca MD 09/15/2019 4:12 AM DIRECTOR OF STUDENT [employer]CIAL SERVICES Due to temporary technical issues with the PACS/Fluency reporting system, reports are being signed by the in house radiologist as a courtesy to ensure prompt reporting. The interpreting radiologist is f ully responsible for the content of the report.
== END 2019-09-15 06:38 | disposition home or self-care (01) ==
LOC: ER 00:02
DX: E86.0 Dehydration (principal); A08.39 Other viral enteritis; K29.70 Gastritis, unspecified, without bleeding; F17.210 Nicotine dependence, cigarettes, uncomplicated; I10 Essential (primary) hypertension; F41.9 Anxiety disorder, unspecified; E03.9 Hypothyroidism, unspecified; Z85.830 Personal history of malignant neoplasm of bone; Z88.5 Allergy status to narcotic agent
CPT/HCPCS: 96361; 85025; 80048; 36415; 80076; 83690; 74177; 96375; 96374; 99284; Q9967; J2550 ×2; J7030; J2405 ×2; J0500